=== PATIENT | female | born 1945 | race Caucasian/White ===

== ENCOUNTER 2017-11-20 16:05 | Observation (INO) | payer OTHER ==
[2017-11-20] MEDS ORDERED: NA CHLORIDE 0.9% 500 ML ONE (19:16)
--- NOTE | 2017-11-20 19:29 | RAD REPORT ---
EXAM DESCRIPTION: RAD - Chest Single View - 11/20/2017 7:01 pm CLINICAL HISTORY: left leg pain Chest pain. COMPARISON: CHEST SINGLE VIEW dated 12/26/2007; CHEST SINGLE VIEW dated 04/07/2006 FINDINGS: Portable technique limits examination quality. The lungs are grossly clear. The heart is normal in size. 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 IMPRESSION: No acute intrathoracic process suspected.
--- NOTE | 2017-11-20 19:31 | RAD REPORT ---
EXAM DESCRIPTION: US - Extrem Venous W Compress Adelfo - 11/20/2017 7:04 pm CLINICAL HISTORY: left leg pain, right calf pain, elevated d-dimer Bilateral leg edema and swelling. COMPARISON: No comparisons TECHNIQUE: Real-time sonographic interrogation of the left and right lower extremity deep venous sys tems was performed. FINDINGS: Normal compressibility, flow augmentation, phasic flow and spontaneous flow is identified in both the left and right lower extremity deep venous systems. The left greater saphenous vein shows thrombosis involving the proximal to distal and upper thigh segment. IMPRESSION: No sonographic evidence of left or right lower extremity deep venous thrombosis. Greater saphenous vein thrombosis on the left is present as detailed.
[2017-11-20 19:51] LABS: Absolute Lymphocytes (CBC) 1.6 K/uL (0.7-4.9); Absolute Monocytes 1.3 K/uL (0.1-1.3); Absolute Neutrophil 9.6 K/uL (1.8-8.0); Basophils % 0.6 % (0-1.3); Eosinophils % 0.9 % (0-4.4); Hematocrit 41.9 % (36.0-45.0); Lymphocytes % 12.7 % (15.3-44.8); MCH 30.5 pg (27.0-35.0); MCV 90.4 fL (80-100); Monocytes % 10.4 % (3.3-12.3); RBC Red Blood Cell Count 4.64 M/uL (3.86-4.86)
[2017-11-20 20:12] LABS: ALT/SGPT 21 U/L (12-78); AST/SGOT 18 U/L (15-37); Albumin 3.7 g/dL (3.4-5.0); Alkaline Phosphatase 116 U/L (45-117); BUN Blood Urea Nitrogen 28 mg/dL (7-18); Bicarbonate 31 mmol/L (21-32); Bilirubin Direct 0.2 mg/dL (0-0.2); Bilirubin Total 0.8 mg/dL (0.2-1.0); Glucose Level 103 mg/dL (74-106); Magnesium 2.6 mg/dL (1.8-2.4); NT PRO-BNP 163 pg/mL (<125); Potassium 4.2 mmol/L (3.5-5.1); Protein, Total 7.7 g/dL (6.4-8.2); Sodium Level 134 mmol/L (136-145); Troponin (Emerg Dept Use Only) < 0.02 ng/mL (0.0-0.045)
[2017-11-20] MEDS ORDERED: ENOXAPARIN 60 MG/0.6 ML SQ ONE (20:24)
--- NOTE | 2017-11-20 20:27 | EDPHYS ---
Physician Documentation [facility] Name: Linda Paniagua Age: 71 yrs Sex: Female : 1945 Arrival Date: 11/20/2017 Time: 16:08 Bed 20 Private MD: Emanuel Chapman ED Physician JaiherbertRicardo tran HPI: 11/20 18:00 This 71 yrs old Female presents to ER via Wheelchair with complaints of pm1 Abnormal Lab Results. 18:00 Onset: The symptoms/episode began/occurred today. Associated signs and symptoms: pm1 Pertinent negatives: chest pain, fever, shortness of breath. Modifying factors: The patient symptoms are alleviated by nothing, the patient symptoms are aggravated by nothing. The patient has not experienced similar symptoms in the past. The patient has been recently seen by a physician: the patient's primary care provider, Dr. Chapman earlier today, with similar presenting complaints, and apparently given a diagnosis of elevated d-dimer, lab tests were done, was given a prescription for antibiotics, and was sent to the [facility] Emergency Department for further evaluation. Patient with complaints of left thigh redness and pain for 3 days. Presented to PCP and had CBC and d-dimer drawn. Instructed to report to the ER for further evaluation of possible DVT/cellulitis She was given a prescription but has not filled it yet. No chest pain or shortness of breath present. Historical: - Allergies: 16:51 PENICILLINS; aj1 - Home Meds: 16:51 Metoprolol Tartrate Oral [Active]; Simvastatin Oral [Active]; losartan oral oral aj1 [Active]; - PMHx: 16:51 breast cancer; uterine cancer; Dementia; Hypertension; Hyperlipidemia; aj1 - PSHx: 16:51 mastectomy- left sided lymph node removal; Hysterectomy; aj1 - Immunization history:: Flu vaccine is not up to date. - Social history:: Smoking status: Patient/guardian denies using tobacco. - Ebola Screening: : Patient denies travel to an Ebola-affected area in the 21 days before illness onset. ROS: 18:00 Constitutional: Negative for fever, chills, and weight loss, Eyes: Negative for injury, pm1 pain, redness, and discharge, ENT: Negative for injury, pain, and discharge, Neck: Negative for injury, pain, and swelling, Cardiovascular: Negative for chest pain, palpitations, and edema, Respiratory: Negative for shortness of breath, cough, wheezing, and pleuritic chest pain, Abdomen/GI: Negative for abdominal pain, nausea, vomiting, diarrhea, and constipation, Back: Negative for injury and pain. 18:00 MS/extremity: Positive for pain, swelling, tenderness, of the medial aspect of left thigh. 18:00 Skin: Positive for swelling, of the medial aspect of left thigh. 18:00 Neuro: Negative for headache, weakness, numbness, tingling, and seizure. pm1 Exam: 18:00 Constitutional: This is a well developed, well nourished patient who is awake, alert, pm1 and in no acute distress. Head/Face: Normocephalic, atraumatic. Eyes: Pupils equal round and reactive to light, extra-ocular motions intact. Lids and lashes normal. Conjunctiva and sclera are non-icteric and not injected. Cornea within normal limits. Periorbital areas with no swelling, redness, or edema. ENT: Nares patent. No nasal discharge, no septal abnormalities noted. Tympanic membranes are normal and external auditory canals are clear. Oropharynx with no redness, swelling, or masses, exudates, or evidence of obstruction, uvula midline. Mucous membranes moist. Neck: Trachea midline, no thyromegaly or masses palpated, and no cervical lymphadenopathy. Supple, full range of motion without nuchal rigidity, or vertebral point tenderness. No Meningismus. Chest/axilla: Normal chest wall appearance and motion. Nontender with no deformity. No lesions are appreciated. Cardiovascular: Regular rate and rhythm with a normal S1 and S2. No gallops, murmurs, or rubs. Normal PMI, no JVD. No pulse deficits. Respiratory: Lungs have equal breath sounds bilaterally, clear to auscultation and percussion. No rales, rhonchi or wheezes noted. No increased work of breathing, no retractions or nasal flaring. Abdomen/GI: Soft, non-tender, with normal bowel sounds. No distension or tympany. No guarding or rebound. No evidence of tenderness throughout. Back: No spinal tenderness. No costovertebral tenderness. Full range of motion. 18:00 Musculoskeletal/extremity: DVT Exam: pain, of the medial aspect of left thigh, swelling, of the medial aspect of left thigh, tenderness, of the medial aspect of left thigh, erythema, of the medial aspect of left thigh, increased warmth, of the medial aspect of left thigh. 18:00 Skin: Appearance: normal except for affected area, redness and swelling present to left medial thigh. Vital Signs: 16:51 BP 117 / 85; Pulse 122; Resp 24; Temp 99.3(TE); Pulse Ox 97% on R/A; Weight 58.97 kg aj (R); Height 5 ft. 5 in. (165.10 cm) (R); Pain 8/10; 17:50 BP 118 / 74; Pulse 103; Resp 19; Pulse Ox 98% on R/A; Pain 4/10; rb1 21:02 BP 120 / 67; Pulse 71; Resp 18 S; Pulse Ox 98% on R/A; jd3 21:48 BP 125 / 73; Pulse 95; Resp 19 S; Pulse Ox 98% on R/A; jd3 16:51 Body Mass Index 21.63 (58.97 kg, 165.10 cm) [facility] MDM: 17:44 Patient medically screened. pm1 19:51 Data reviewed: vital signs. Data interpreted: Pulse oximetry: on room air is 95 %. pm1 Interpretation: normal. Counseling: I had a detailed discussion with the patient and/or guardian regarding: the historical points, exam findings, and any diagnostic results supporting the discharge/admit diagnosis, radiology results, the need for further work-up and treatment in the hospital. 20:28 Physician consultation: Emanuel Chapman MD was called at 20:28, was contacted at 20:28, pm1 regarding patient's condition, Recommends not to perform CT chest and anticoagulate the patient on 6 month therapy versus 3 months. IV contrast would potentially harm kidney function and we can just treat with assumptions of microemboli in chest and treat over 6 months. Gave a prescription for antibiotics to treat left lower leg with assumption of cellulitis prior to d-dimer result. Does not feel it would hurt to cover with abx. Communicated discussion with Ari to Rubén will observe prior to giving abx. Appearance of left thigh appears to be caused by DVT. 11/20 17:53 Order name: Basic Metabolic Panel; Complete Time: 20:16 pm1 11/20 17:53 Order name: CBC with Diff; Complete Time: 20:16 pm1 11/20 17:53 Order name: LFT's; Complete Time: 20:16 pm1 11/20 17:53 Order name: Magnesium; Complete Time: 20:16 pm1 11/20 17:53 Order name: NT PRO-BNP; Complete Time: 20:16 pm1 11/20 17:53 Order name: PT-INR; Complete Time: 21:43 pm1 11/20 17:53 Order name: Troponin (emerg Dept Use Only); Complete Time: 20:16 pm1 11/20 17:53 Order name: XRAY Chest (1 view); Complete Time: 19:40 pm1 11/20 17:53 Order name: Extrem Venous W Compression Adelfo US; Complete Time: 19:40 pm1 11/20 17:53 Order name: Blood Culture Adult (2) pm1 11/20 17:53 Order name: Procalcitonin; Complete Time: 21:43 pm1 11/20 17:53 Order name: Lactate; Complete Time: 21:43 pm1 11/20 17:53 Order name: EKG; Complete Time: 17:54 pm1 11/20 17:53 Order name: Cardiac monitoring; Complete Time: 18:56 pm1 11/20 17:53 Order name: EKG - Nurse/Tech; Complete Time: 18:59 pm1 11/20 17:53 Order name: IV Saline Lock; Complete Time: 18:56 pm1 11/20 17:53 Order name: Labs collected and sent; Complete Time: 18:56 pm1 11/20 17:53 Order name: O2 Per Protocol; Complete Time: 18:56 pm1 11/20 17:53 Order name: O2 Sat Monitoring; Complete Time: 18:56 pm1 Administered Medications: 19:15 Drug: NS 0.9% 500 ml Route: IV; Rate: bolus; Site: right antecubital; rb1 21:16 Follow up: Response: No adverse reaction; IV Status: Completed infusion; IV Intake: jd3 500ml 20:23 Drug: Lovenox 1 mg/kg Route: Sub-Q; Site: abdomen; jd3 21:16 Follow up: Response: No adverse reaction jd3 Disposition: 11/20/17 20:26 Hospitalization ordered by Monroe Pringle for Observation. Preliminary diagnosis is Acute embolism and thrombosis of other specified deep vein of left lower extremity - Saphenous vein. - Bed requested for Telemetry/MedSurg (observation). - Status is Observation. jd3 - Condition is Stable. - Problem is new. - Symptoms have improved. UTI on Admission? No Addendum: 12/03/2017 11:12 Co-signature as Attending Physician, Ricardo Treviño MD. m a2 Signatures: Dispatcher [employer] EDMS Marie Salgado RN RN aj1 Jessica Nix RN RN fc Shreya Bryson, RN RN [facility] Gerald Jurado, DRIVER'S LICENSE EXAMINER DRIVER'S LICENSE EXAMINER pm1 Marcelino De Souza RN RN jd3 Alzahri, MD HYACINTH Silva ma2 Corrections: (The following items were deleted from the chart) 11/20 21:04 20:26 Hospitalization Ordered by Monroe Pringle MD for Observation. Preliminary fc diagnosis is Acute embolism and thrombosis of other specified deep vein of left lower extremity - Saphenous vein. Bed requested for Telemetry/MedSurg (observation). Status is Observation. Condition is Stable. Problem is new. Symptoms have improved. UTI on Admission? No. pm1 22:08 21:04 11/20/2017 20:26 Hospitalization Ordered by Monroe Pringle MD for Observation. jd3 Preliminary diagnosis is Acute embolism and thrombosis of other specified deep vein of left lower extremity - Saphenous vein. Bed requested for Telemetry/MedSurg (observation). Status is Observation. Condition is Stable. Problem is new. Symptoms have improved. UTI on Admission? No. fc
--- NOTE | 2017-11-20 20:27 | ER ---
Nurse's Notes [facility] Name: Linda Paniagau Age: 71 yrs Sex: Female : 1945 Arrival Date: 11/20/2017 Time: 16:08 Bed 20 Private MD: Emanuel Chapman Diagnosis: Acute embolism and thrombosis of other specified deep vein of left lower extremity-Saphenous vein Presentation: 11/20 16:40 Presenting complaint: states: She was seen this morning at Dr. Mendez because aj1 she her left thigh has a reddened area that feels firm to the touch. She was sent to get labs and Dr. Chapman's office called back and told them that her D-Dimer was elevated and to come to the nearest emergency room. Patient reports SOB. Respirations even and unlabored. Breath sounds CTA. Patient reports dry cough. Transition of care: patient was not received from another setting of care. Onset of symptoms was November 20, 2017. Risk Assessment: Do you want to hurt yourself or someone else? Patient reports no desire to harm self or others. Initial Sepsis Screen: Does the patient meet any 2 criteria? No. Patient's initial sepsis screen is negative. Does the patient have a suspected source of infection? Yes: Productive cough/pneumonia. Care prior to arrival: None. 16:40 Method Of Arrival: Wheelchair aj1 16:40 Acuity: JOHANNA 2 aj1 Triage Assessment: 16:51 General: Appears in no apparent distress. uncomfortable, Behavior is calm, cooperative, aj1 appropriate for age. Pain: Pain currently is 8 out of 10 on a pain scale. Neuro: Level of Consciousness is awake, alert, obeys commands. Cardiovascular: Heart tones S1 S2 present Patient's skin is warm and dry. Respiratory: Reports shortness of breath on exertion Airway is patent Respiratory effort is even, unlabored, Respiratory pattern is regular, symmetrical, Breath sounds are clear bilaterally. Historical: - Allergies: 16:51 PENICILLINS; aj1 - Home Meds: 16:51 Metoprolol Tartrate Oral [Active]; Simvastatin Oral [Active]; losartan oral oral aj1 [Active]; - PMHx: 16:51 breast cancer; uterine cancer; Dementia; Hypertension; Hyperlipidemia; aj1 - PSHx: 16:51 mastectomy- left sided lymph node removal; Hysterectomy; aj1 - Immunization history:: Flu vaccine is not up to date. - Social history:: Smoking status: Patient/guardian denies using tobacco. - Ebola Screening: : Patient denies travel to an Ebola-affected area in the 21 days before illness onset. Screenin:50 Abuse screen: Denies threats or abuse. Nutritional screening: No deficits noted. rb1 Tuberculosis screening: No symptoms or risk factors identified. Fall Risk None identified. Assessment: 17:50 General: Appears in no apparent distress. comfortable, Behavior is calm, cooperative. rb1 Pain: Complains of pain in medial aspect of left thigh Pain currently is 4 out of 10 on a pain scale. Neuro: Level of Consciousness is awake, alert, obeys commands, Oriented to person, place, time, situation. Cardiovascular: Capillary refill < 3 seconds is brisk in bilateral toes. Respiratory: Reports shortness of breath cough that is dry, Airway is patent Respiratory effort is even, unlabored, Respiratory pattern is regular, symmetrical. GI: No signs and/or symptoms were reported involving the gastrointestinal system. : No signs and/or symptoms were reported regarding the genitourinary system. Derm: Skin is pink, warm \T\ dry. Musculoskeletal: Range of motion: intact in all extremities. 18:29 Reassessment: Ultrasound at bedside. Unable to obtain labs at this time. Awaiting for ss testing to be done. 18:45 Reassessment: Patient appears in no apparent distress at this time. No changes from rb1 previously documented assessment. 19:40 Reassessment: Patient appears in no apparent distress at this time. No changes from jd3 previously documented assessment. Patient and/or family updated on plan of care and expected duration. Pain level reassessed. Patient is alert, oriented x 3, equal unlabored respirations, skin warm/dry/pink. 20:49 Reassessment: Patient appears in no apparent distress at this time. No changes from jd3 previously documented assessment. Patient and/or family updated on plan of care and expected duration. Pain level reassessed. Patient is alert, oriented x 3, equal unlabored respirations, skin warm/dry/pink. waiting for room assignment. 21:47 Reassessment: Patient appears in no apparent distress at this time. No changes from jd3 previously documented assessment. Patient and/or family updated on plan of care and expected duration. Pain level reassessed. Patient is alert, oriented x 3, equal unlabored respirations, skin warm/dry/pink. report given to Rehana RN by Hanny PEPPER. Vital Signs: 16:51 BP 117 / 85; Pulse 122; Resp 24; Temp 99.3(TE); Pulse Ox 97% on R/A; Weight 58.97 kg aj1 (R); Height 5 ft. 5 in. (165.10 cm) (R); Pain 8/10; 17:50 BP 118 / 74; Pulse 103; Resp 19; Pulse Ox 98% on R/A; Pain 4/10; rb1 21:02 BP 120 / 67; Pulse 71; Resp 18 S; Pulse Ox 98% on R/A; jd3 21:48 BP 125 / 73; Pulse 95; Resp 19 S; Pulse Ox 98% on R/A; jd3 16:51 Body Mass Index 21.63 (58.97 kg, 165.10 cm) aj1 ED Course: 16:08 Patient arrived in ED. rg4 16:08 Emanuel Chapman MD is Private Physician. rg4 16:49 Triage completed. aj1 16:51 Arm band placed on Patient placed in waiting room, Patient notified of wait time aj1 Patient Notified EVGENY Conway, charge nurse of patient with elevated D-Dimer, tachycardia. 17:44 Gerald Jurado NP is PHCP. pm1 17:44 Ricardo Treviño MD is Attending Physician. pm1 17:50 Patient has correct armband on for positive identification. Placed in gown. Bed in low rb1 position. Call light in reach. Side rails up X 1. Pulse ox on. NIBP on. Warm blanket given. 18:03 Shreya Bryson, EVGENY is Primary Nurse. rb1 18:05 EKG done, by compliance technician. reviewed by Gerald Jurado NP. sm3 18:45 Inserted saline lock: 22 gauge in right antecubital area, using aseptic technique. rb1 Blood collected. 18:57 X-ray completed. Portable x-ray completed in exam room. Patient tolerated procedure az well. 19:00 Report given to EVGENY Simental. rb1 19:01 XRAY Chest (1 view) In Process Unspecified. EDMS 19:03 Extrem Venous W Compression Adelfo US In Process Unspecified. EDMS 20:20 Monroe Pringle MD is Hospitalizing Provider. pm1 22:08 No provider procedures requiring assistance completed. Patient admitted, IV remains in jd3 place. Administered Medications: 19:15 Drug: NS 0.9% 500 ml Route: IV; Rate: bolus; Site: right antecubital; rb1 21:16 Follow up: Response: No adverse reaction; IV Status: Completed infusion; IV Intake: jd3 500ml 20:23 Drug: Lovenox 1 mg/kg Route: Sub-Q; Site: abdomen; jd3 21:16 Follow up: Response: No adverse reaction jd3 Intake: 21:16 IV: 500ml; Total: 500ml. jd3 Outcome: 20:26 Decision to Hospitalize by Provider. pm1 22:08 Patient left the ED. jd3 22:21 Admitted to Tele accompanied by tech, via wheelchair, room 229, with chart, Report jd3 called to Rehana PEPPER 22:21 Condition: stable 22:21 Instructed on the need for admit, Demonstrated understanding of instructions. Signatures: Dispatcher [employer] EDMS Marie Salgado RN RN aj1 Zoraida White RN RN ss Shreya Bryson RN RN rb1 Gerald Jurado, PURCHASING ADMINISTRATOR PURCHASING ADMINISTRATOR pm1 Teresa Gómez4 Marcelino De Souza RN RN jd3 Griselda Rodas 3 Alva Emerson Corrections: (The following items were deleted from the chart) 20:49 18:50 BP 116 / 68; Pulse 93bpm; Resp 18bpm; Pulse Ox 95% RA; rb1 jd3 20:49 20:47 BP 117 / 82; Pulse 90bpm; Resp 18bpm; Spontaneous; Pulse Ox 98% RA; jd3 jd3
[2017-11-20 20:41] LABS: Protime INR 1.16
[2017-11-20] MEDS ORDERED: ONDANSETRON 4 MG/2 ML VIAL IV PRN (21:45)
--- NOTE | 2017-11-20 22:27 | P.HP ---
Certification for Inpatient Patient admitted to: Observation With expected LOS: <2 Midnights Practitioner: I am a practitioner with admitting privileges, knowledge of patient current condition, hospital course, and medical plan of care. Services: Services provided to patient in accordance with Admission requirements found in Title 42 Section 412.3 of the Code of Federal Regulations Patient History Date of Service: 11/20/17 Reason for admission: DVT History of Present Illness: Ms Paniagua is a 71-year-old woman with history of hypertension, dementia, who is morning she woke up with painful area of her left tight. She also has erythema and induration to palpation. He has had subjective fever as well. Today, she went to see her PCP, D-dimer was significantly elevated, and she was referred to ER for further evaluation and rule out DVT. In ER workup was positive for left saphenous vein thrombosis. She denied any recent trip. According to family members the patient is very active. She has never had these symptoms in the past. Allergies No Known Allergies Allergy (Verified 01/18/16 10:06) Home medications list reviewed: Yes Home Medications: Aspirin [Aspirin EC 81 MG] 81 mg PO DAILY 01/18/16 Losartan/Hydrochlorothiazide [Losartan-Hctz 50-12.5 mg Tab] 1 each PO DAILY WITH BREAKFAST 01/18/16 Metoprolol Succinate [Toprol Xl*] 50 mg PO DAILY WITH BREAKFAST 01/18/16 Risedronate Sodium [Actonel] 150 mg PO ONCE 01/18/16 Simvastatin [Zocor*] 20 mg PO BEDTIME 01/18/16 - Past Medical/Surgical History -: Hypertension -: History of breast cancer -: History of uterine cancer -: Dementia -: Mastectomy -: Hysterectomy - Family History Family History: Reviewed- Non-Contributory - Social History Smoking Status: Never smoker Alcohol use: No CD- Drugs: No Place of Residence: Home Review of Systems 10-point ROS is otherwise unremarkable Physical Examination - Physical Exam General: Alert, In no apparent distress HEENT: Atraumatic, PERRLA, Mucous membr. moist/pink, EOMI, Sclerae nonicteric Neck: Supple, 2+ carotid pulse no bruit, No LAD, Without JVD or thyroid abnormality Respiratory: Clear to auscultation bilaterally, Normal air movement Cardiovascular: Regular rate/rhythm, Normal S1 S2 Gastrointestinal: Normal bowel sounds, No tenderness Musculoskeletal: Erythema, Tenderness, Warmth Integumentary: No rashes Neurological: Normal speech, Normal strength at 5/5 x4 extr, Normal tone, Normal affect Lymphatics: No axilla or inguinal lymphadenopathy - Studies Laboratory Data (last 24 hrs) 11/20/17 20:12: PT 13.7 H, INR 1.16 11/20/17 18:45: WBC 12.7 H, Hgb 14.1, Hct 41.9, Plt Count 274 11/20/17 18:45: Sodium 134 L, Potassium 4.2, BUN 28 H, Creatinine 1.60 H, Glucose 103, Magnesium 2.6 H, Total Bilirubin 0.8, AST 18, ALT 21, Alkaline Phosphatase 116 Assessment and Plan - Problems (Diagnosis) (1) DVT (deep venous thrombosis) Current Visit: Yes Status: Acute Qualifiers: DVT location: lower extremity Affected thrombotic vein of extremity: other lower extremity vein Chronicity: acute Laterality: left Qualified Code(s) : I82.492 - Acute embolism and thrombosis of other specified deep vein of left lower extremity (2) Hypertension Current Visit: Yes Status: Acute Qualifiers: Hypertension type: essential hypertension Qualified Code(s): I10 - Essential (primary) hypertension - Plan The patient will be admitted to the hospital due to acute DVT episode. Will start anticoagulation, she may be discharged home tomorrow if remain stable. - Advance Directives Does patient have a Living Will: No Does patient have a Durable POA for Healthcare: No - Code Status/Comfort Care Code Status Assessed: Yes Code Status: Full Code
[2017-11-21 06:08] LABS: Absolute Lymphocytes (CBC) 2.4 K/uL (0.7-4.9); Absolute Monocytes 1.4 K/uL (0.1-1.3); Basophils % 0.4 % (0-1.3); Eosinophils % 1.4 % (0-4.4); Hematocrit 40.2 % (36.0-45.0); Lymphocytes % 20.1 % (15.3-44.8); MCH 31.4 pg (27.0-35.0); MCV 90.2 fL (80-100); MPV 8.6 fL (7.6-11.3); Monocytes % 11.9 % (3.3-12.3); RBC Red Blood Cell Count 4.46 M/uL (3.86-4.86)
[2017-11-21 06:25] LABS: Potassium 4.1 mmol/L (3.5-5.1)
--- NOTE | 2017-11-21 06:51 | EKG ---
Test Date: 2017-11-20 Test Time: 17:59:36 Supervisor [employer]: ZENON MEASUREMENT RESULTS: Intervals: Rate: 92 DC: 136 QRSD: 76 QT: 366 QTc: 452 [place]: P: 44 DC: 136 QRS: -14 T: 37 INTERPRETIVE STATEMENTS: Normal sinus rhythm Normal ECG Compared to ECG 06/20/2016 13:23:12 Ventricular premature complex(es) no longer present Myocardial infarct finding no longer present Electronically Signed On 11-21-17 06:50:21 CDT by Manuel Bustamante
[2017-11-21] MEDS ORDERED: ENOXAPARIN 60 MG/0.6 ML SQ SCH (09:00)
--- NOTE | 2017-11-22 00:57 | DS ---
Date of Discharge: 11/21/2017 Discharge Diagnoses: 1.Superficial thrombophlebitis in the saphenous vein of the left lower extremity. 2.Essential hypertension. 3.History of breast cancer, in remission. Follows with Oncology at [facility]. 4.Alzheimer dementia, early onset, without behavioral disturbance. 5.History of uterine cancer, treated. Hospital Course: The patient is a 71-year-old female with history of hypertension, dementia, multipl e cancers in the late that had been treated and currently in remission. Follows actively with oncologist at [facility], comes in with redness of the left thigh along with induration to palpation and tenderness and warmth to touch. The patient had a doppler done to rule out DVT, showed a saphen ous vein thrombosis. The patient was started on anticoagulation with Lovenox. This is not a deep ve in thrombosis. This is in the greater saphenous vein on the left side, which is likely representing a thrombophlebitis of a superficial vein. The patient did better with anticoagulation. Her pain imp roved, however not completely resolved. Her redness also improved. Family is at the bedside. I exp lained to them that the patient does not necessarily have to be on anticoagulation; however, due to h er symptoms, she can be treated with Xarelto for 6 weeks and she will need to follow up with her onco logist at [facility] for a hypercoagulable workup. The patient denies smoking. No estrogen use. N o trauma to the area. No long flights or long car drives. Therefore, seems to be an unprovoked even t. She denies any family history of DVT. The patient is doing stable. Her vital signs were unremar kable. Her sodium level improved. Kidney function normalized. She was not septic. Her procalciton in was 0.08. White blood cell count was trending down. The patient was then cleared for discharge a nd will need to follow up with her oncologist at [facility]. Symptomatic treatment of the thromboph lebitis with elevation, heat, and compression. Medications: As per medication reconciliation list. Will take Xarelto for 6 weeks. Hold aspirin wh ile on Xarelto. Return to ER for worsening condition. Followup: Follow up with primary care physician in 2-3 days. Diet: Heart healthy. Activity: As tolerated. Physical Examination: General: Awake, alert, oriented, no acute distress. CV: S1, S2. No murmurs. Respiratory: Moving air well bilaterally. Abdomen: Abdomen is soft, nontender, nondistended. Positive bowel sounds. Extremities: Left thigh has some erythema and induration, with some mild tenderness to palpation, improved per the patient. Neurologic: Nonfocal. SA/MODL Voice ID: [id number] Report ID: [id number]
== END 2017-11-21 12:32 | disposition home or self-care (01) ==
LOC: ER 16:05 → ERHOLD 20:37 → 2ND 21:18
PROVIDERS: ADMIT Internal Medicine; ATTEND Internal Medicine
DX: I80.02 Phlebitis and thrombophlebitis of superficial vessels of left lower extremity (principal); I10 Essential (primary) hypertension; G30.9 Alzheimer's disease, unspecified; F02.80 Dementia in other diseases classified elsewhere, unspecified severity, without behavioral disturbance, psychotic disturbance, mood disturbance, and anxiety; Z79.82 Long term (current) use of aspirin; Z85.3 Personal history of malignant neoplasm of breast; Z85.42 Personal history of malignant neoplasm of other parts of uterus
CPT/HCPCS: 36415; 71045; 80048 ×2; 80076; 83605; 83735; 83880; 84145; 84484; 85025 ×2; 85610; 87040 ×2; 93005; 93970; 96360; 96361; 96372; 99285; G0378 ×2; J1650 ×2

== ENCOUNTER 2018-03-30 07:37 | Emergency (ER) | payer OTHER ==
[2018-03-30] MEDS ORDERED: NA CHLORIDE 0.9% 500 ML ONE ×2 (08:14→10:03)
[2018-03-30 08:24] LABS: Absolute Monocytes 0.8 K/uL (0.1-1.3); Absolute Neutrophil 8.8 K/uL (1.8-8.0); Basophils % 0.4 % (0-1.3); Eosinophils % 1.2 % (0-4.4); Hematocrit 37.6 % (36.0-45.0); Lymphocytes % 9.4 % (15.3-44.8); MPV 11.1 fL (7.6-11.3); Monocytes % 7.5 % (3.3-12.3); RBC Red Blood Cell Count 4.21 M/uL (3.86-4.86)
[2018-03-30 08:42] LABS: Bilirubin Direct 5.8 mg/dL (0-0.2); Bilirubin Total 6.8 mg/dL (0.2-1.0); Potassium 3.4 mmol/L (3.5-5.1); Protein, Total 6.2 g/dL (6.4-8.2)
[2018-03-30 10:16] LABS: Platelet Estimate DECR; Urine White Blood Cell Casts OK
[2018-03-30 10:17] LABS: Blood Morphology Comment NOT SEEN (NOT SEEN)
[2018-03-30 10:18] LABS: Platelets, Giant PRESENT
--- NOTE | 2018-03-30 10:18 | RAD REPORT ---
EXAM DESCRIPTION: CT - Head Brain W/Wo Con - 03/30/2018 10:08 am CLINICAL HISTORY: Breast cancer and confusion COMPARISON: None. TECHNIQUE: Computed axial tomography of the head was obtained. Unenhanced and enhanced images obtain ed. 50 cc Isovue-[address] scans are performed using dose optimization technique as appropriate and may include automated exposure control or mA/KV adjustment according to patient size. FINDINGS: An intracranial bleed is not seen . The ventricles are normal in caliber. No extra-axial fluid collection is noted. Cerebral atrophy is noted. No abnormal enhancement seen Fluid within the sinuses/ mastoids is not seen. IMPRESSION: No acute intracranial abnormality is seen. If patient's symptoms persist MRI of the bra in would be recommended.
--- NOTE | 2018-03-30 10:26 | RAD REPORT ---
EXAM DESCRIPTION: CT - Abdomen Pelvis W Contrast - 03/30/2018 10:08 am CLINICAL HISTORY: Abdominal pain. Jaundice COMPARISON: None. TECHNIQUE: Computed axial tomography of the abdomen and pelvis was obtained. 100 cc Isovue-300 is ad ministered intravenously. Oral contrast was given. All CT scans are performed using dose optimization technique as appropriate and may include automated exposure control or mA/KV adjustment according to patient size. FINDINGS: Multiple hypodense hepatic lesions are present measuring up to 6 centimeters. The liver is diffusely involves. Mild dilatation of the intrahepatic biliary tree is present. Common bile duct is normal isabel iber. The gallbladder appears contracted. Thrombus within the portal vein is not seen. The spleen, adrenals and kidneys demonstrate no significant abnormality. 3.6 centimeter mass is present within the pancreatic tail. There is no evidence of diverticulitis. A hysterectomy has been performed A small ventral hernia Spondylosis involves lumbar spine resulting in spinal stenosis IMPRESSION: 3.6 centimeter pancreatic mass likely representing adenocarcinoma Multiple hepatic metastases. Mild intrahepatic dilatation
--- NOTE | 2018-03-30 10:44 | EDPHYS ---
Physician Documentation [facility] Name: Linda Paniagua Age: 72 yrs Sex: Female : 1945 Arrival Date: 03/30/2018 Time: 07:40 Bed 13 Private MD: ED Physician Hakan De Leon HPI: 03/30 07:48 This 72 yrs old Female presents to ER via Unassigned with complaints of rn diarrhea, AMS. 07:48 The patient presents to the emergency department with diarrhea. Onset: The rn symptoms/episode began/occurred at an unknown time. Possible causes: unknown. Associated signs and symptoms: Pertinent positives: diarrhea, Pertinent negatives: fever, GI bleeding. Severity of symptoms: At their worst the symptoms were mild in the emergency department the symptoms are unchanged. It is unknown whether or not the patient has had similar symptoms in the past. Per EMS, not much information given other than AMS, confused, an diarrhea, famiy thought was from increasing her donepezil, no vomiting, no known trauma. . Historical: - Allergies: 07:40 PENICILLINS; rb1 - Home Meds: 07:40 losartan-hydrochlorothiazide 50-12.5 mg oral tab 1 tab once daily [Active]; donepezil rb1 HCL 5 mg 2 tabs daily [Active]; simvastatin 20 mg oral tab 1 tab once daily [Active]; Xarelto 20 mg oral tab 1 tab once daily [Active]; - PMHx: 07:40 breast cancer; Dementia; Hyperlipidemia; Hypertension; uterine cancer; rb1 - PSHx: 07:40 mastectomy- left sided lymph node removal; Hysterectomy; neck; rb1 - Immunization history:: Adult Immunizations up to date. - Family history:: not pertinent. - Ebola Screening: : Patient negative for fever greater than or equal to 101.5 degrees Fahrenheit, and additional compatible Ebola Virus Disease symptoms. - Social history:: Smoking status: Patient/guardian denies using tobacco. - Hospitalizations: : No recent hospitalization is reported. ROS: 07:48 Constitutional: Negative for fever, chills, and weight loss, Eyes: Negative for injury, rn pain, redness, and discharge, Neck: Negative for injury, pain, and swelling, Cardiovascular: Negative for chest pain, palpitations, and edema, Respiratory: Negative for shortness of breath, cough, wheezing, and pleuritic chest pain, Abdomen/GI: + diarrhea Back: Negative for injury and pain, MS/Extremity: Negative for injury and deformity, Skin: Negative for injury, rash, and discoloration, Neuro: Negative for headache, numbness, tingling, and seizure. Exam: 07:48 Constitutional: This is a well developed, well nourished patient who is awake, alert, rn and in no acute distress. Head/Face: Normocephalic, atraumatic. Eyes: Pupils equal round and reactive to light, extra-ocular motions intact. Lids and lashes normal. Conjunctiva and sclera are non-icteric and not injected. Cornea within normal limits. Periorbital areas with no swelling, redness, or edema. ENT: MMM Cardiovascular: Regular rate and rhythm, No pulse deficits. Respiratory: Lungs have equal breath sounds bilaterally, clear to auscultation. No increased work of breathing, no retractions or nasal flaring. Abdomen/GI: soft, non-tender Skin: Face/neck appear jaundiced with scleral icterus. MS/ Extremity: Pulses equal, no cyanosis. Neurovascular intact. Full, normal range of motion. Equal circumference. Neuro: Awake and alert, GCS 15, oriented to person, place, not time. Cranial nerves II-XII grossly intact. Motor strength 5/5 in all extremities. Sensory grossly intact. Vital Signs: 07:40 BP 129 / 77; Pulse 77; Resp 19; Temp 97.3(TE); Pulse Ox 95% on R/A; Weight 46.27 kg rb1 (R); Height 5 ft. 3 in. (160.02 cm) (R); Pain 3/10; 08:40 BP 125 / 80; Pulse 74; Resp 18; Pulse Ox 100% on R/A; rb1 09:15 BP 120 / 83; Pulse 78; Resp 17; Pulse Ox 100% ; rb1 10:15 BP 131 / 80; Pulse 86; Resp 17; Pulse Ox 100% on R/A; rb1 11:15 BP 118 / 67; Pulse 87; Resp 17; Pulse Ox 100% on R/A; rb1 12:15 BP 122 / 72; Pulse 72; Resp 16; Pulse Ox 99% on R/A; rb1 07:40 Body Mass Index 18.07 (46.27 kg, 160.02 cm) rb1 MDM: 07:40 Patient medically screened. rn 10:42 Differential diagnosis: Nonspecific abd pain, gastritis, pancreatitis, viral rn gastroenteritis, gastroenteritis, liver cancer, pancreatic cancer. Data reviewed: vital signs, nurses notes, lab test result(s), radiologic studies, CT scan, and as a result, I will admit patient. Counseling: I had a detailed discussion with the patient and/or guardian regarding: the historical points, exam findings, and any diagnostic results supporting the discharge/admit diagnosis, lab results, radiology results, the need for further work-up and treatment in the hospital, the need to transfer to another facility, [facility] does not immediately have the required specialist. 03/30 07:43 Order name: Basic Metabolic Panel; Complete Time: 09:02 rn 03/30 07:43 Order name: CBC with Diff; Complete Time: 10:36 rn 03/30 07:43 Order name: Hepatic Function; Complete Time: 09:02 rn 03/30 07:43 Order name: Lipase; Complete Time: 09:02 rn 03/30 07:48 Order name: Urine Microscopic Only; Complete Time: 12:14 rn 03/30 08:33 Order name: CBC Smear Scan; Complete Time: 10:36 EDMS 03/30 07:43 Order name: CT Abd/Pelvis - W/Contrast; Complete Time: 10:36 rn 03/30 09:11 Order name: US Abdomen Limited; Complete Time: 11:49 rn 03/30 09:52 Order name: Head Brain W/Wo Con; Complete Time: 10:36 EDMS 03/30 12:03 Order name: Urine Dipstick--Ancillary (enter results); Complete Time: 12:14 03/30 07:43 Order name: IV Saline Lock; Complete Time: 08:03 rn 03/30 07:43 Order name: Labs collected and sent; Complete Time: 08:03 rn 03/30 07:43 Order name: EKG; Complete Time: 07:44 rn 03/30 07:43 Order name: EKG - Nurse/Tech; Complete Time: 08:45 rn 03/30 07:48 Order name: Urine Dipstick-Ancillary (obtain specimen); Complete Time: 12:03 rn Administered Medications: 08:05 Drug: NS 0.9% 500 ml Route: IV; Rate: bolus; Site: right antecubital; rb1 10:20 Drug: NS 0.9% 500 ml Route: IV; Rate: bolus; Site: right antecubital; rb1 11:30 Drug: Valium 2 mg Route: PO; rb1 Disposition: 03/30/18 10:43 Transfer ordered to [facility]. Diagnosis are Unspecified jaundice, Pancreatic Mass. - Reason for transfer: Higher level of care. - Accepting physician is . - Condition is Stable. - Problem is new. - Symptoms are unchanged. Signatures: Dispatcher [employer] EDWI Hakan De Leon MD MD rn Barber, Rebecca, RN RN rb1 Corrections: (The following items were deleted from the chart) 09:52 09:12 Head Brain Wo Cont+CT.RAD.BRZ ordered. [facility] 12:36 10:43 03/30/2018 10:43 Transfer ordered to [facility]. Diagnosis is rb1 Unspecified jaundice; Pancreatic Mass. Reason for transfer: Higher level of care. Accepting physician is . Condition is Stable. Problem is new. Symptoms are unchanged. rn
--- NOTE | 2018-03-30 10:44 | ER ---
Nurse's Notes [facility] Name: Linda Paniagua Age: 72 yrs Sex: Female : 1945 Arrival Date: 03/30/2018 Time: 07:40 Bed 13 Private MD: Diagnosis: Unspecified jaundice;Pancreatic Mass Presentation: 03/30 07:40 Presenting complaint: EMS states: 72 yr. old with a history of dementia. Her dementia rb1 medication was increased recently and she has had diarrhea x 1 day. History of breast and uterine cancer, dementia, neck surgery, left mastectomy, and hysterectomy. 18 G R AC, EMS administered 250 ml of NS. Allergy to Penicillin. Transition of care: patient was not received from another setting of care. Onset of symptoms was March 29, 2018. Risk Assessment: Do you want to hurt yourself or someone else? Patient reports no desire to harm self or others. Initial Sepsis Screen: Does the patient meet any 2 criteria? No. Patient's initial sepsis screen is negative. Does the patient have a suspected source of infection? No. Patient's initial sepsis screen is negative. Care prior to arrival: Medication(s) given: Normal saline infusion, 250 ml. 07:40 Method Of Arrival: EMS: [facility] rb1 07:40 Acuity: JOHANNA 3 rb1 Triage Assessment: 07:40 General: Appears in no apparent distress. comfortable, Behavior is calm, cooperative, rb1 Denies fever. Pain: Complains of pain in neck Pain currently is 3 out of 10 on a pain scale. Pain began chronic. Neuro: Level of Consciousness is awake, obeys commands, confused, Dementia. Oriented to person. Cardiovascular: Capillary refill < 3 seconds is brisk in bilateral fingers. Respiratory: Airway is patent Respiratory effort is even, unlabored, Respiratory pattern is regular, symmetrical. GI: Parent/caregiver reports the patient having diarrhea, since x 1 day. : No signs and/or symptoms were reported regarding the genitourinary system. Derm: Skin is dry, Skin is jaundiced, Skin temperature is warm. Historical: - Allergies: 07:40 PENICILLINS; rb1 - Home Meds: 07:40 losartan-hydrochlorothiazide 50-12.5 mg oral tab 1 tab once daily [Active]; donepezil rb1 HCL 5 mg 2 tabs daily [Active]; simvastatin 20 mg oral tab 1 tab once daily [Active]; Xarelto 20 mg oral tab 1 tab once daily [Active]; - PMHx: 07:40 breast cancer; Dementia; Hyperlipidemia; Hypertension; uterine cancer; rb1 - PSHx: 07:40 mastectomy- left sided lymph node removal; Hysterectomy; neck; rb1 - Immunization history:: Adult Immunizations up to date. - Family history:: not pertinent. - Ebola Screening: : Patient negative for fever greater than or equal to 101.5 degrees Fahrenheit, and additional compatible Ebola Virus Disease symptoms. - Social history:: Smoking status: Patient/guardian denies using tobacco. - Hospitalizations: : No recent hospitalization is reported. Screenin:40 Abuse screen: Denies threats or abuse. Nutritional screening: No deficits noted. rb1 Tuberculosis screening: No symptoms or risk factors identified. Fall Risk No fall in past 12 months (0 pts). Secondary diagnosis (15 points) dementia, IV access (20 points). Ambulatory Aid- None/Bed Rest/Nurse Assist (0 pts). Gait- Normal/Bed Rest/Wheelchair (0 pts) Mental Status- Overestimates/Forgets Limitations (15 pts.). Total Kumar Fall Scale indicates High Risk Score (45 or more points). Fall prevention measures have been instituted. Side Rails Up X 2 Placed Close to Nursing Station 1:1 Attendant Assigned Frequent Obs/Assessments Occuring Family Present and informed to notify staff if the need to leave the bedside As available patient and family educated on Fall Prevention Program and Strategies. Assessment: 07:40 General: See triage assessment. rb1 08:40 Reassessment: Patient appears in no apparent distress at this time. No changes from rb1 previously documented assessment. Daughter at bedside. 09:24 Reassessment: Patient appears in no apparent distress at this time. Patient and/or rb1 family updated on plan of care and expected duration. Pain level reassessed. Patient is alert, oriented x 3, equal unlabored respirations, skin warm/dry/pink. Family at bedside. 10:23 Reassessment: Patient appears in no apparent distress at this time. Patient and/or rb1 family updated on plan of care and expected duration. Pain level reassessed. Patient is alert, oriented x 3, equal unlabored respirations, skin warm/dry/pink. Attempted to collect urine but the pt. and family refused at this time. Provider notified. 11:02 Reassessment: Family reports that the pt. is getting a little anxious, trying to crawl rb1 out of bed and wants to leave. Provider notified. 11:19 Reassessment: Called report to EVGENY Lezama at [facility]. Information from rb1 the SBAR was given. All questions asked and answered. 12:00 Reassessment: Patient appears in no apparent distress at this time. Patient and/or rb1 family updated on plan of care and expected duration. Pain level reassessed. Patient is alert, oriented x 3, equal unlabored respirations, skin warm/dry/pink. Patient denies pain at this time. 12:28 Reassessment: Gave report to [facility]. Information from the SBAR was given. All rb1 questions asked and answered. Vital Signs: 07:40 BP 129 / 77; Pulse 77; Resp 19; Temp 97.3(TE); Pulse Ox 95% on R/A; Weight 46.27 kg rb1 (R); Height 5 ft. 3 in. (160.02 cm) (R); Pain 3/10; 08:40 BP 125 / 80; Pulse 74; Resp 18; Pulse Ox 100% on R/A; rb1 09:15 BP 120 / 83; Pulse 78; Resp 17; Pulse Ox 100% ; rb1 10:15 BP 131 / 80; Pulse 86; Resp 17; Pulse Ox 100% on R/A; rb1 11:15 BP 118 / 67; Pulse 87; Resp 17; Pulse Ox 100% on R/A; rb1 12:15 BP 122 / 72; Pulse 72; Resp 16; Pulse Ox 99% on R/A; rb1 07:40 Body Mass Index 18.07 (46.27 kg, 160.02 cm) [facility] ED Course: 07:40 Patient arrived in ED. rn 07:40 Hakan De Leon MD is Attending Physician. rn 07:40 Arm band placed on right wrist. rb1 07:40 Patient has correct armband on for positive identification. Bed in low position. Call rb1 light in reach. Side rails up X 1. Pulse ox on. NIBP on. 07:40 Maintain EMS IV. Dressing intact. Good blood return noted. Site clean \T\ dry. Gauge \T\ rb 1 site: 18 G R AC. 07:48 Shreya Bryson, RN is Primary Nurse. rb1 07:54 Triage completed. rb1 07:59 Initial lab(s) drawn, by me, sent to lab. dh3 08:45 EKG done, by ED staff, reviewed by Hakan De Leon MD. dh3 09:44 Radiology exam delayed due to in CT. sg3 10:08 CT Abd/Pelvis - W/Contrast In Process Unspecified. EDMS 10:08 Head Brain W/Wo Con In Process Unspecified. EDMS 10:34 initiated a transfer with Christine at the [facility] transfer center. eb 10:49 connected the GI mason helper for [facility] with Dr. De Leon for patient transfer eb consultation. 10:57 connected the hospitalist mason helper from [facility] transfer with Dr. De Leon for eb patient transfer consultation. 11:00 Ultrasound completed. Patient tolerated well. sg3 11:06 US Abdomen Limited In Process Unspecified. EDMS 11:09 administrative approval given by Cheyenne Yanez / Dr. Fung, has accepted the eb patient in transfer, pt going to [id number]/ report to be called to [phone]. 12:02 Urine collected: clean catch specimen, richard colored. 3 12:36 No provider procedures requiring assistance completed. Patient transferred, IV remains rb1 in place. Administered Medications: 08:05 Drug: NS 0.9% 500 ml Route: IV; Rate: bolus; Site: right antecubital; rb1 10:20 Drug: NS 0.9% 500 ml Route: IV; Rate: bolus; Site: right antecubital; rb1 11:30 Drug: Valium 2 mg Route: PO; rb1 Output: 12:00 Urine: 240ml (Voided); Total: 240ml. rb1 Outcome: 10:43 ER care complete, transfer ordered by . rn 12:36 Patient left the ED. rb1 12:36 Transferred by ground EMS to [facility], Transfer form completed. rb1 12:36 Condition: stable 12:36 Instructed on the need for transfer. Signatures: Dispatcher [employer] EDMS Hakan De Leon MD MD rn Barber, Rebecca, RN RN [facility] Fara Finn 3 Jennifer Putnam 3 Mallika Thomas
[2018-03-30] MEDS ORDERED: DIAZEPAM 2 MG TABLET ONE (11:37)
--- NOTE | 2018-03-30 11:44 | RAD REPORT ---
EXAM DESCRIPTION: US - Abdomen Exam Limited - 03/30/2018 11:05 am CLINICAL HISTORY: Abdominal pain. COMPARISON: None. FINDINGS: The gallbladder wall is not thickened. A gallstone is not seen. Gallbladder is contracted Mild dilatation the intrahepatic biliary tree. The common bile duct is normal caliber IMPRESSION: Mild dilatation of the intrahepatic biliary tree. Contracted gallbladder without visualization of a stone
[2018-03-30 12:12] LABS: Urine Blood TRACE (NEG); Urine Glucose NEGATIVE (NEG); Urine Protein NEGATIVE (NEG); Urine Specific Gravity 1.005 (1.005-1.030)
[2018-03-30 12:12] LABS: Urine Bacteria <20 /HPF (<20); Urine Culture Reflex Order NOT NEEDED; Urine Mucus 1+ /HPF (NONE SEEN)
--- NOTE | 2018-03-31 10:55 | EKG ---
Test Date: 2018-03-30 Test Time: 08:42:58 Mica Paster: YUDELKA MEASUREMENT RESULTS: Intervals: Rate: 76 AR: 136 QRSD: 78 QT: 428 QTc: 481 [place]: P: 54 AR: 136 QRS: -6 T: 24 INTERPRETIVE STATEMENTS: Normal sinus rhythm Possible Left atrial enlargement Borderline ECG Compared to ECG 11/20/2017 17:59:36 No significant changes Electronically Signed On 03-31-18 10:55:01 TRAP PULLER by Donis Meredith
== END 2018-03-30 12:36 | disposition short-term general hospital (02) ==
LOC: ER 07:37
DX: R17 Unspecified jaundice (principal); K86.9 Disease of pancreas, unspecified; I10 Essential (primary) hypertension; E78.5 Hyperlipidemia, unspecified; F03.90 Unspecified dementia, unspecified severity, without behavioral disturbance, psychotic disturbance, mood disturbance, and anxiety; Z79.01 Long term (current) use of anticoagulants; Z88.0 Allergy status to penicillin; Z85.3 Personal history of malignant neoplasm of breast; Z85.42 Personal history of malignant neoplasm of other parts of uterus; Z90.12 Acquired absence of left breast and nipple
CPT/HCPCS: 36415; 74177; 76705; 80048; 80076; 83690; 85025; 93005; 99285; Q9967; 81003; 81015

== ENCOUNTER 2018-04-15 11:27 | Emergency (ER) | payer OTHER ==
--- OUTSIDE RECORDS SUMMARY | 2018-04-15 11:37 | XMS REPORT ---
:1945 [facility] Address [address] [place] [address] Dr. Loomis [address] [place] [id number] Care Team Providers Name Role Phone SHANE SOL Unavailable Unavailable Problems This patient has no known problems. Allergies, Adverse Reactions, Alerts This patient has no known allergies or adverse reactions. Medications This patient has no known medications. Results Test Description Test Time Test Comments Text Results Atomic Results Result Comments FINE NEEDLE ASPIRATION 2018-04-04 15:31:00 Medical Cytology Report BY CLINICIAN Case: [id number] Authorizing Provider: Jamie Whatley Collected: 04/01/2018 Antonino Hutchison MD Ordering Location: [address] Received: 04/02/2018 0930 SERVICE Pathologist: Yudy Coffey MD Specimen: Pancreas, pancreas body/tail FNA for routine cyto in CRR Addendum is issued to report additional CPT codes. The original diagnosis remains the same.Additional CPT codes:07043, 37158Ufublmrz electronically signed by Yudy Coffey MD on 04/04/2018 at 3:31 PMPANCREAS BODY/TAIL MASS FNA BY CLINICIAN (CYTOSPINS AND CELL BLOCK OF ASPIRATE): - Adenocarcinoma, see comment Signing Pathologist Direct Phone Line: [phone] signed by Yudy Coffey MD on 04/04/2018 at 3:02 PMDiagnostic material is present mainly on the cell block. Patient chart was reviewed and history of breast and endometrial cancers is noted and immunohistochemistry was performed. Negative staining with Pax8 and GATA3 makes a Mullerian and/ or breast primaries less likely. Clinical correlation is required. Please also see [id number] report on this [id number], 92981Deksixxqks mass, history of endometrial cancerPANCREAS BODY/TAIL MASS FNA32 mls in cytorich red; 4 cytospins, cell blockCollected: [id number]: [id number] interpretation of this case included the use of immunohistochemistry or special stains. Immunohistochemistry technical testing was performed at [facility], Pathology Laboratory where it was developed and its performance characteristics were determined. It has not been cleared or approved by the U.S. Food and Drug Administration. The FDA has determined that such clearance or approval is not necessary. The test is used for clinical purposes. It should not be regarded as investigational or for research. This laboratory is certified under the Clinical Laboratory Improvement Amendments of 1988 (CLIA-88) as qualified to perform high complexity clinical laboratory testing.Immunohistochemistry is negative for GATA3 and Pax8.[facility], Department of Pathology, [address] [place] [address], [facility], [address] [place] [address], [facility], [facility] of [facility], [address] [place] [address], TISSUE EXAM 2018-04-03 13:08:00 Surgical Pathology Report Case: [id number] Authorizing Provider: Jamie Whatley Collected: 04/01/2018 1643 MD Foster Ordering Location: [address] Received: 04/02/2018 0831 SERVICE Pathologist: Madiha Loredo MD Specimen: Pancreas, PANCREAS BODY/TAIL FINE NEEDLE BIOPSY PANCREAS, BODY/TAIL, UPPER EUS, BIOPSY OF MASS: - ADENOCARCINOMA Signing Pathologist Direct Phone Line: [phone] signed by Madiha Loredo MD on 04/03/2018 at 1:08 [id number] massPancreas body/tail fine needle biopsy The specimen is received in a formalin-filled container labeled with the patient's information and labeled "pancreas body/tail fine needle biopsy" and consists of multiple fragments of rai soft tissue ranging from less than 0.1 to 0.4 cm, submitted entirely in A1. CG/ew PERFORMED FINE NEEDLE ASPIRATE (FNA) REQUEST 2018-04-02 11:01:00 Test Item Value Reference Range Comments CYTOLOGY RESULT POINTER (BEAKER) (test ttcf=7615) See Separate Report [id number] 08:44:00 Test Item Value Reference Range Comments PHOSPHORUS (BEAKER) (test eajb=205) 3.3 mg/dL 2.3-4.7 [id number] 08:44:00 Test Item Value Reference Range Comments MAGNESIUM (BEAKER) (test dmfv=701) 2.0 mg/dL 1.6-2.6 BASIC METABOLIC [id number] 08:44:00 Test Item Value Reference Range Comments SODIUM (BEAKER) (test 137 meq/L 136-145 jyhs=172) POTASSIUM (BEAKER) (test 3.8 meq/L 3.5-5.1 ganq=852) CHLORIDE (BEAKER) (test 105 meq/L 98-107 slnt=821) CO2 (BEAKER) (test 23 meq/L 22-29 cscg=789) BLOOD UREA NITROGEN 31 mg/dL 7-21 (BEAKER) (test togm=900) CREATININE (BEAKER) (test 1.36 mg/dL 0.57-1.25 fvju=981) GLUCOSE RANDOM (BEAKER) 132 mg/dL 70-105 (test ntpg=926) CALCIUM (BEAKER) (test 8.8 mg/dL 8.4-10.2 wnpb=624) EGFR (BEAKER) (test 38 mL/min/1.73 sq m ESTIMATED GFR IS NOT lifu=3850) ACCURATE CREATININE CLEARANCE IN PREDICTING GLOMERULAR FILTRATION RATE. ESTIMATED GFR IS NOT APPLICABLE FOR DIALYSIS PATIENTS. Specimen moderately ictericHEPATIC FUNCTION [id number] 08:44:00 Test Item Value Reference Range Comments TOTAL PROTEIN (BEAKER) (test wlni=742) 5.2 gm/dL 6.0-8.3 ALBUMIN (BEAKER) (test vfpv=2426) 2.9 g/dL 3.5-5.0 BILIRUBIN TOTAL (BEAKER) (test skwm=589) 9.2 mg/dL 0.2-1.2 BILIRUBIN DIRECT (BEAKER) (test culy=325) 6.8 mg/dL 0.1-0.5 ALKALINE PHOSPHATASE (BEAKER) (test hhfw=429) 1234 U/L 40-150 AST (SGOT) (BEAKER) (test javy=845) 194 U/L 5-34 ALT (SGPT) (BEAKER) (test urdv=732) 247 U/L 6-55 Specimen moderately ictericCBC W/PLT COUNT & AUTO [id number] 07: 12:00 Test Item Value Reference Range Comments WHITE BLOOD CELL COUNT 10.3 K/ L 3.5-10.5 (BEAKER) (test bwxr=104) RED BLOOD CELL COUNT (BEAKER) 3.52 M/ L 3.93-5.22 (test pcbp=589) HEMOGLOBIN (BEAKER) (test 10.2 GM/DL 11.2-15.7 evyp=204) HEMATOCRIT (BEAKER) (test 32.0 % 34.1-44.9 wpto=212) MEAN CORPUSCULAR VOLUME 90.9 fL 79.4-94.8 (BEAKER) (test ksaj=136) MEAN CORPUSCULAR HEMOGLOBIN 29.0 pg 25.6-32.2 (BEAKER) (test svui=597) MEAN CORPUSCULAR HEMOGLOBIN 31.9 GM/DL 32.2-35.5 CONC (BEAKER) (test skso=990) RED CELL DISTRIBUTION WIDTH 16.8 % 11.7-14.4 (BEAKER) (test rpkf=680) PLATELET COUNT (BEAKER) (test 48 K/CU MM 150-450 wysi=203) MEAN PLATELET VOLUME (BEAKER) fL 9.4-12.3 Unable to report due to (test rqhh=166) abnormal Platelet population distribution. NUCLEATED RED BLOOD CELLS 0 /100 WBC 0-0 (BEAKER) (test wvov=576) NEUTROPHILS RELATIVE PERCENT 77 % (BEAKER) (test ijar=302) LYMPHOCYTES RELATIVE PERCENT 10 % (BEAKER) (test buka=362) MONOCYTES RELATIVE PERCENT 10 % (BEAKER) (test snuy=310) EOSINOPHILS RELATIVE PERCENT 1 % (BEAKER) (test dfuc=564) BASOPHILS RELATIVE PERCENT 1 % (BEAKER) (test gfhc=884) NEUTROPHILS ABSOLUTE COUNT 8.01 K/ L 1.56-6.13 (BEAKER) (test ifgd=499) LYMPHOCYTES ABSOLUTE COUNT 1.02 K/ L 1.18-3.74 (BEAKER) (test gerv=950) MONOCYTES ABSOLUTE COUNT 1.03 K/ L 0.24-0.36 (BEAKER) (test suqn=856) EOSINOPHILS ABSOLUTE COUNT 0.10 K/ L 0.04-0.36 (BEAKER) (test vwus=439) BASOPHILS ABSOLUTE COUNT 0.05 K/ L 0.01-0.08 (BEAKER) (test eaue=079) IMMATURE GRANULOCYTES-RELATIVE 1 % 0-1 PERCENT (BEAKER) (test ghba=7553) PROTHROMBIN [id number] 07:10:00 Test Item Value Reference Range Comments PROTIME (BEAKER) (test dbvr=761) 18.4 seconds 11.7-14.7 INR (BEAKER) (test oowk=483) 1.5 <=5.9 RECOMMENDED COUMADIN/WARFARIN INR THERAPY RANGESSTANDARD DOSE: 2.0 - 3.0 Includes: PROPHYLAXIS forvenous thrombosis, systemic embolization; TREATMENT for venous thrombosis and/or pulmonary embolus.HIGH RISK: Target INR is 2.5-3.5 for patients with mechanical heart valves.VT, [id number] 19:37:00INTRA OP IMAGINGReason for exam:->abnormal imagingFINAL REPORT Intraoperative fluoroscopy. CLINICAL HISTORY: abnormal imaging. FINDINGS: Five fluoroscopically acquired images were acquired by the referring physician. An intraoperative verbal report was not requested. Fluoroscopy was not performed by the undersigned. Fluoroscopytime: 77 seconds. Five images. Signed: Milton Pulido MDReport Verified Date/Time: 04/01/2018 19:37:08 Reading Location: [address] Consult Reading Room PERIPHERAL BLOOD SMEAR - PATHOLOGIST [id number] 08:19:00 Test Item Value Reference Range Comments PERIPHERAL SMR REVIEW No circulating blasts. No (BEAKER) (test jmkt=6305) signficantly increased schistocytes. [id number] Shan Erwin (BEAKER) (test adur=6793) Ricardo(electronic signature) [id number] 07:28:00 Test Item Value Reference Range Comments PHOSPHORUS (BEAKER) (test gglg=757) 2.8 mg/dL 2.3-4.7 [id number] 07:28:00 Test Item Value Reference Range Comments MAGNESIUM (BEAKER) (test aucr=581) 2.1 mg/dL 1.6-2.6 BASIC METABOLIC [id number] 07:28:00 Test Item Value Reference Range Comments SODIUM (BEAKER) (test 136 meq/L 136-145 cbbb=800) POTASSIUM (BEAKER) (test 3.9 meq/L 3.5-5.1 nnjs=209) CHLORIDE (BEAKER) (test 105 meq/L 98-107 eiho=703) CO2 (BEAKER) (test 22 meq/L 22-29 xpqx=754) BLOOD UREA NITROGEN 33 mg/dL 7-21 (BEAKER) (test mrtw=826) CREATININE (BEAKER) (test 1.41 mg/dL 0.57-1.25 kqvo=283) GLUCOSE RANDOM (BEAKER) 104 mg/dL 70-105 (test scne=123) CALCIUM (BEAKER) (test 8.4 mg/dL 8.4-10.2 rrju=875) EGFR (BEAKER) (test 37 mL/min/1.73 sq m ESTIMATED GFR IS NOT mscb=3651) ACCURATE CREATININE CLEARANCE IN PREDICTING GLOMERULAR FILTRATION RATE. ESTIMATED GFR IS NOT APPLICABLE FOR DIALYSIS PATIENTS. Specimen moderately ictericHEPATIC FUNCTION [id number] 07:28:00 Test Item Value Reference Range Comments TOTAL PROTEIN (BEAKER) (test ywmy=707) 5.1 gm/dL 6.0-8.3 ALBUMIN (BEAKER) (test lazg=6709) 2.9 g/dL 3.5-5.0 BILIRUBIN TOTAL (BEAKER) (test aeyn=672) 8.6 mg/dL 0.2-1.2 BILIRUBIN DIRECT (BEAKER) (test ojcj=265) 6.5 mg/dL 0.1-0.5 ALKALINE PHOSPHATASE (BEAKER) (test azwo=756) 1188 U/L 40-150 AST (SGOT) (BEAKER) (test uxwz=384) 214 U/L 5-34 ALT (SGPT) (BEAKER) (test uwtu=108) 252 U/L 6-55 Specimen moderately ictericPROTHROMBIN [id number] 06:59:00 Test Item Value Reference Range Comments PROTIME (BEAKER) (test koox=898) 16.7 seconds 11.7-14.7 INR (BEAKER) (test jnwc=777) 1.3 <=5.9 RECOMMENDED COUMADIN/WARFARIN INR THERAPY RANGESSTANDARD DOSE: 2.0 - 3.0 Includes: PROPHYLAXIS forvenous thrombosis, systemic embolization; TREATMENT for venous thrombosis and/or pulmonary embolus.HIGH RISK: Target INR is 2.5-3.5 for patients with mechanical heart valves.CBC W/PLT COUNT & AUTO [id number] 06:51:00 Test Item Value Reference Range Comments WHITE BLOOD CELL COUNT (BEAKER) (test poev=276) 9.6 K/ L 3.5-10.5 RED BLOOD CELL COUNT (BEAKER) (test qihl=306) 3.48 M/ L 3.93-5.22 HEMOGLOBIN (BEAKER) (test ynaf=834) 10.0 GM/DL 11.2-15.7 HEMATOCRIT (BEAKER) (test usby=332) 32.1 % 34.1-44.9 MEAN CORPUSCULAR VOLUME (BEAKER) (test tpyh=949) 92.2 fL 79.4-94.8 MEAN CORPUSCULAR HEMOGLOBIN (BEAKER) (test 28.7 pg 25.6-32.2 wlxd=270) MEAN CORPUSCULAR HEMOGLOBIN CONC (BEAKER) (test 31.2 GM/DL 32.2-35.5 ggps=333) RED CELL DISTRIBUTION WIDTH (BEAKER) (test 16.5 % 11.7-14.4 rohu=909) PLATELET COUNT (BEAKER) (test etqu=409) 43 K/CU MM 150-450 MEAN PLATELET VOLUME (BEAKER) (test qpjf=012) 12.7 fL 9.4-12.3 NUCLEATED RED BLOOD CELLS (BEAKER) (test 0 /100 WBC 0-0 vtif=773) NEUTROPHILS RELATIVE PERCENT (BEAKER) (test 74 % ddec=842) LYMPHOCYTES RELATIVE PERCENT (BEAKER) (test 13 % vfcg=729) MONOCYTES RELATIVE PERCENT (BEAKER) (test 10 % mldh=013) EOSINOPHILS RELATIVE PERCENT (BEAKER) (test 2 % ylxi=404) BASOPHILS RELATIVE PERCENT (BEAKER) (test 1 % wbqz=995) NEUTROPHILS ABSOLUTE COUNT (BEAKER) (test 7.08 K/ L 1.56-6.13 gesz=801) LYMPHOCYTES ABSOLUTE COUNT (BEAKER) (test 1.21 K/ L 1.18-3.74 jcxr=656) MONOCYTES ABSOLUTE COUNT (BEAKER) (test uqqk=041) 0.94 K/ L 0.24-0.36 EOSINOPHILS ABSOLUTE COUNT (BEAKER) (test 0.23 K/ L 0.04-0.36 oygj=890) BASOPHILS ABSOLUTE COUNT (BEAKER) (test rltq=590) 0.05 K/ L 0.01-0.08 IMMATURE GRANULOCYTES-RELATIVE PERCENT (BEAKER) 1 % 0-1 (test vpdp=5379) [id number] 07:25:00 Test Item Value Reference Range Comments PHOSPHORUS (BEAKER) (test gmyn=008) 3.2 mg/dL 2.3-4.7 [id number] 07:25:00 Test Item Value Reference Range Comments MAGNESIUM (BEAKER) (test zxkr=144) 2.1 mg/dL 1.6-2.6 BASIC METABOLIC [id number] 07:25:00 Test Item Value Reference Range Comments SODIUM (BEAKER) (test 135 meq/L 136-145 kjqy=733) POTASSIUM (BEAKER) (test 3.6 meq/L 3.5-5.1 qbud=614) CHLORIDE (BEAKER) (test 105 meq/L 98-107 eiao=724) CO2 (BEAKER) (test 22 meq/L 22-29 hguo=882) BLOOD UREA NITROGEN 34 mg/dL 7-21 (BEAKER) (test brpp=824) CREATININE (BEAKER) (test 1.55 mg/dL 0.57-1.25 mlts=606) GLUCOSE RANDOM (BEAKER) 124 mg/dL 70-105 (test zlhs=151) CALCIUM (BEAKER) (test 8.2 mg/dL 8.4-10.2 mpyl=753) EGFR (BEAKER) (test 33 mL/min/1.73 sq m ESTIMATED GFR IS NOT qxix=0546) ACCURATE CREATININE CLEARANCE IN PREDICTING GLOMERULAR FILTRATION RATE. ESTIMATED GFR IS NOT APPLICABLE FOR DIALYSIS PATIENTS. Specimen moderately ictericHEPATIC FUNCTION [id number] 07:25:00 Test Item Value Reference Range Comments TOTAL PROTEIN (BEAKER) (test gpql=182) 5.1 gm/dL 6.0-8.3 ALBUMIN (BEAKER) (test cdpw=4016) 2.9 g/dL 3.5-5.0 BILIRUBIN TOTAL (BEAKER) (test klgc=943) 6.9 mg/dL 0.2-1.2 BILIRUBIN DIRECT (BEAKER) (test yose=521) 5.5 mg/dL 0.1-0.5 ALKALINE PHOSPHATASE (BEAKER) (test pabu=273) 1073 U/L 40-150 AST (SGOT) (BEAKER) (test wtha=854) 186 U/L 5-34 ALT (SGPT) (BEAKER) (test yxhb=201) 246 U/L 6-55 Specimen moderately ictericCBC W/PLT COUNT & AUTO [id number] 07: 21:00 Test Item Value Reference Range Comments WHITE BLOOD CELL COUNT (BEAKER) (test znjw=808) 12.1 K/ L 3.5-10.5 RED BLOOD CELL COUNT (BEAKER) (test ljsp=809) 3.85 M/ L 3.93-5.22 HEMOGLOBIN (BEAKER) (test xule=555) 11.0 GM/DL 11.2-15.7 HEMATOCRIT (BEAKER) (test wzub=920) 36.4 % 34.1-44.9 MEAN CORPUSCULAR VOLUME (BEAKER) (test bkgx=414) 94.5 fL 79.4-94.8 MEAN CORPUSCULAR HEMOGLOBIN (BEAKER) (test 28.6 pg 25.6-32.2 iomy=604) MEAN CORPUSCULAR HEMOGLOBIN CONC (BEAKER) (test 30.2 GM/DL 32.2-35.5 yimj=064) RED CELL DISTRIBUTION WIDTH (BEAKER) (test 15.9 % 11.7-14.4 ntol=054) PLATELET COUNT (BEAKER) (test fttl=871) 58 K/CU MM 150-450 MEAN PLATELET VOLUME (BEAKER) (test oioq=113) 13.2 fL 9.4-12.3 NUCLEATED RED BLOOD CELLS (BEAKER) (test 0 /100 WBC 0-0 jcgg=896) NEUTROPHILS RELATIVE PERCENT (BEAKER) (test 78 % rbjv=748) LYMPHOCYTES RELATIVE PERCENT (BEAKER) (test 11 % ckgk=695) MONOCYTES RELATIVE PERCENT (BEAKER) (test 8 % yxai=431) EOSINOPHILS RELATIVE PERCENT (BEAKER) (test 1 % jero=228) BASOPHILS RELATIVE PERCENT (BEAKER) (test 1 % lwou=831) NEUTROPHILS ABSOLUTE COUNT (BEAKER) (test 9.36 K/ L 1.56-6.13 zgzi=993) LYMPHOCYTES ABSOLUTE COUNT (BEAKER) (test 1.32 K/ L 1.18-3.74 twzx=262) MONOCYTES ABSOLUTE COUNT (BEAKER) (test mkay=841) 0.99 K/ L 0.24-0.36 EOSINOPHILS ABSOLUTE COUNT (BEAKER) (test 0.09 K/ L 0.04-0.36 eeel=320) BASOPHILS ABSOLUTE COUNT (BEAKER) (test bzuy=637) 0.10 K/ L 0.01-0.08 IMMATURE GRANULOCYTES-RELATIVE PERCENT (BEAKER) 2 % 0-1 (test zvzt=0343) PROTHROMBIN [id number] 07:21:00 Test Item Value Reference Range Comments PROTIME (BEAKER) (test tzvf=366) 16.8 seconds 11.7-14.7 INR (BEAKER) (test nlal=376) 1.4 <=5.9 RECOMMENDED COUMADIN/WARFARIN INR THERAPY RANGESSTANDARD DOSE: 2.0 - 3.0 Includes: PROPHYLAXIS forvenous thrombosis, systemic embolization; TREATMENT for venous thrombosis and/or pulmonary embolus.HIGH RISK: Target INR is 2.5-3.5 for patients with mechanical heart valves.CARCINOEMBRYONIC ANTIGEN (CEA) 22:20:00 Test Item Value Reference Range Comments CARCINOEMBRYONIC ANTIGEN (BEAKER) (test otmw=022) 53.7 ng/mL 0.0-5.0 TSH/FREE T4 IF [id number] 21:46:00 Test Item Value Reference Range Comments THYROID STIMULATING HORMONE (BEAKER) (test 2.49 uIU/mL 0.35-4.94 ollb=194) VITAMIN B12 AND [id number] 21:46:00 Test Item Value Reference Range Comments VITAMIN B12 (BEAKER) (test amar=350) 1248 pg/mL 213-816 FOLATE (BEAKER) (test qhyy=350) 7.1 ng/mL >=7.0 (MANUAL DIFFERENTIAL)2018-03-30 21:33:00 Test Item Value Reference Range Comments NEUTROPHILS - REL (DIFF) (BEAKER) (test yuyk=6402) 78 % LYMPHOCYTES - REL (DIFF) (BEAKER) (test ukjt=6399) 12 % MONOCYTES - REL (DIFF) (BEAKER) (test fdwn=1874) 7 % EOSINOPHILS - REL (DIFF) (BEAKER) (test vusq=6792) 2 % BANDS - REL (DIFF) (BEAKER) (test peag=6089) 1 % 0-10 TOTAL COUNTED (BEAKER) (test tqjo=7679) 100 WBC MORPHOLOGY (BEAKER) (test wncj=078) Normal PLT MORPHOLOGY (BEAKER) (test rzfw=610) Normal RBC MORPHOLOGY (BEAKER) (test spqn=805) Normal COMPREHENSIVE METABOLIC [id number] 21:11:00 Test Item Value Reference Range Comments TOTAL PROTEIN (BEAKER) 5.1 gm/dL 6.0-8.3 (test srfd=016) ALBUMIN (BEAKER) (test 2.9 g/dL 3.5-5.0 quib=0387) ALKALINE PHOSPHATASE 1024 U/L 40-150 (BEAKER) (test hjtc=654) BILIRUBIN TOTAL (BEAKER) 7.6 mg/dL 0.2-1.2 (test enxt=346) SODIUM (BEAKER) (test 134 meq/L 136-145 lncg=065) POTASSIUM (BEAKER) (test 3.5 meq/L 3.5-5.1 nsnk=434) CHLORIDE (BEAKER) (test 104 meq/L 98-107 ijsj=689) CO2 (BEAKER) (test 21 meq/L 22-29 caxc=356) BLOOD UREA NITROGEN 33 mg/dL 7-21 (BEAKER) (test lmpe=268) CREATININE (BEAKER) (test 1.19 mg/dL 0.57-1.25 kedg=286) GLUCOSE RANDOM (BEAKER) 191 mg/dL 70-105 (test wekg=458) CALCIUM (BEAKER) (test 8.1 mg/dL 8.4-10.2 wstq=086) AST (SGOT) (BEAKER) (test 194 U/L 5-34 oflu=513) ALT (SGPT) (BEAKER) (test 267 U/L 6-55 pttd=784) EGFR (BEAKER) (test 45 mL/min/1.73 sq m ESTIMATED GFR IS NOT nven=1284) ACCURATE CREATININE CLEARANCE IN PREDICTING GLOMERULAR FILTRATION RATE. ESTIMATED GFR IS NOT APPLICABLE FOR DIALYSIS PATIENTS. Specimen moderately ictericPT/[id number] 21:06:00 Test Item Value Reference Range Comments PROTIME (BEAKER) (test amkc=199) 17.3 seconds 11.7-14.7 INR (BEAKER) (test gayh=562) 1.4 <=5.9 PARTIAL THROMBOPLASTIN TIME (BEAKER) (test 31.8 seconds 22.5-36.0 cpti=184) RECOMMENDED COUMADIN/WARFARIN INR THERAPY RANGESSTANDARD DOSE: 2.0 - 3.0 Includes: PROPHYLAXIS forvenous thrombosis, systemic embolization; TREATMENT for venous thrombosis and/or pulmonary embolus.HIGH RISK: Target INR is 2.5-3.5 for patients with mechanical heart valves.[id number] 21:03:00 Test Item Value Reference Range Comments AMMONIA (BEAKER) (test mapr=957) 46 mol/L 18-72 CBC (HEMOGRAM ONLY)2018-03-30 20:51:00 Test Item Value Reference Range Comments WHITE BLOOD CELL COUNT (BEAKER) (test iudy=966) 10.4 K/ L 3.5-10.5 RED BLOOD CELL COUNT (BEAKER) (test tdvb=298) 3.31 M/ L 3.93-5.22 HEMOGLOBIN (BEAKER) (test jmcy=140) 9.7 GM/DL 11.2-15.7 HEMATOCRIT (BEAKER) (test ovbx=931) 30.3 % 34.1-44.9 MEAN CORPUSCULAR VOLUME (BEAKER) (test jskz=876) 91.5 fL 79.4-94.8 MEAN CORPUSCULAR HEMOGLOBIN (BEAKER) (test 29.3 pg 25.6-32.2 irqo=982) MEAN CORPUSCULAR HEMOGLOBIN CONC (BEAKER) (test 32.0 GM/DL 32.2-35.5 ppum=585) RED CELL DISTRIBUTION WIDTH (BEAKER) (test 15.6 % 11.7-14.4 ptcs=042) PLATELET COUNT (BEAKER) (test erqm=629) 44 K/CU MM 150-450 MEAN PLATELET VOLUME (BEAKER) (test zsjs=598) 11.5 fL 9.4-12.3 NUCLEATED RED BLOOD CELLS (BEAKER) (test 0 /100 WBC 0-0 spol=562) RAD, CHEST, 1 VIEW, NON [id number] 17:40:00Reason for exam:->coughShould this be performed at the bedside?->YesFINAL REPORT Chest, one view History: Cough Comparison: none Findings:Clear lungs. Normal size heart. No pleural effusion or pneumothorax. 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 Impression:No acute findings in the chest Signed: Germán Montanez [facility] Verified Date/Time: 03/30/2018 17:40:06 Reading Location: [facility] B1 C013Y CT Body Reading Room
--- OUTSIDE RECORDS SUMMARY | 2018-04-15 11:37 | XMS REPORT | Clinical Summary ---
:1945 Author Organization [facility] Address [address] [place] [address] Care Team Providers Name Role Phone Unavailable Primary Care Provider Unavailable Allergies Active Allergy Reactions Severity Noted Date Comments Penicillins 03/30/2018 Medications Medication Sig Dispensed Refills Start Date End Date Status donepezil (ARICEPT) 5 Take 5 mg by 0 Active MG tabletIndications: mouth Mild to Moderate nightly. Alzheimer's Type Dementia simvastatin (ZOCOR) Take 20 mg 0 Active 20 MG by mouth tabletIndications: nightly. hyperlipidemia rivaroxaban (XARELTO) Take 1 0 04/03/2018 Active 20 mg Tab tablet (20 tabletIndications: mg total) by Prevention of Deep mouth daily Vein Thrombosis with dinner. Recurrence folic acid (FOLVITE) Take 1 30 tablet 0 04/03/2018 05/03/2018 Active 1 MG tablet tablet (1 mg total) by mouth daily for 30 days. rivaroxaban (XARELTO) Take 20 mg 0 04/02/2018 Discontinued 20 mg Tab by mouth tabletIndications: daily with Prevention of Deep dinner. Vein Thrombosis Recurrence losartan-hydroCHLOROt Take 1 0 04/02/2018 Discontinued hiazide (HYZAAR) tablet by 50-12.5 mg per mouth daily. tabletIndications: hypertension levoFLOXacin Take 1 5 tablet 0 04/02/2018 04/07/2018 (LEVAQUIN) 250 MG tablet (250 tablet mg total) by mouth daily for 5 days. 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 03/30/2018 Encounters Date Type Specialty Care Team Description 04/01/2018 Anesthesia Event Gastroenterology Angélica Weaver CRNA 04/01/2018 Surgery Gastroenterology Jamie Whatley ERCP,PAPILLOTOMY Phylicia Hutchison MD 03/30/2018 - Hospital Encounter Oncology Gadicherla, Obstructive jaundice due to cancer (HCC); 04/02/2018 [place]illian Pancreatic mass; MD Paresh Liver masses; Rylie Chu Bile duct obstruction, intrahepatic; MD Brent Late onset Alzheimer's disease without behavioral disturbance; Samuel Orona Acute encephalopathy MD Jamarcus Flores III, Anita Palomino MD 03/30/2018 Travel after 04/14/2017 Family History Medical History Relation Name Comments Cancer Mother Relation Name Status Comments Mother Social History Tobacco Use Types Packs/Day Years Used Date Never Smoker Smokeless Tobacco: Never Used Alcohol Use Drinks/Week oz/Week Comments No Alcohol Habits Answer Date Recorded How often do you have a drink containing alcohol? Never 03/30/2018 How many drinks containing alcohol do you have on a typical Not asked day when you are drinking? How often do you have six or more drinks on one occasion? Never 03/30/2018 Sex Assigned at Date Recorded Not on file Job Start Date Occupation Industry Not on file Not on file Not on file Travel History Travel Start Travel End No recent travel history available. Last Filed Vital Signs Vital Sign Reading Time Taken Blood Pressure 118/70 04/02/2018 12:00 PM MONITORING SPECIALIST Pulse 89 04/02/2018 12:00 PM MONITORING SPECIALIST Temperature 37 C (98.6 F) 04/02/2018 12:00 PM MONITORING SPECIALIST Respiratory Rate 18 04/02/2018 12:00 PM MONITORING SPECIALIST Oxygen Saturation 98% 04/02/2018 12:00 PM MONITORING SPECIALIST Inhaled Oxygen Concentration - - Weight 56.7 kg (125 lb) 04/01/2018 3:37 PM MONITORING SPECIALIST Height - - Body Mass Index - - Plan of Treatment Not on file Implants Implanted Type Area Board Worker Device Shelf Model / Identifier Expiration Serial / Lot Date Stent Wallflex Adelfo Rx [id number] - [id number] Stents-P N/A: [employer]: ENDO 08/27/2019 7063 / Implanted: Qty: 1 on 04/01/2018 by Jamie Whatley MD eriphera Bile [id number] / l Duct [id number] Procedures Procedure Name Priority Date/Time Associated Comments Diagnosis REPORT OF PROCEDURE - 04/02/2018 5:00 ENDOSCOPY URL PM MONITORING SPECIALIST REPORT OF PROCEDURE - 04/02/2018 4:57 ENDOSCOPY URL PM MONITORING SPECIALIST CBC W/PLT COUNT & AUTO Routine 04/02/2018 6:46 Results for this DIFFERENTIAL AM MONITORING SPECIALIST procedure are in the results section. CBC W/PLT COUNT & AUTO Routine 04/02/2018 6:46 Results for this DIFFERENTIAL AM MONITORING SPECIALIST procedure are in the results section. PROTHROMBIN TIME/INR Routine 04/02/2018 6:46 Results for this AM MONITORING SPECIALIST procedure are in the results section. PHOSPHORUS Routine 04/02/2018 6:46 Results for this AM MONITORING SPECIALIST procedure are in the results section. MAGNESIUM Routine 04/02/2018 6:46 Results for this AM MONITORING SPECIALIST procedure are in the results section. HEPATIC FUNCTION PANEL Routine 04/02/2018 6:46 Results for this AM MONITORING SPECIALIST procedure are in the results section. BASIC METABOLIC PANEL Routine 04/02/2018 6:46 Results for this (7) AM MONITORING SPECIALIST procedure are in the results section. FL ERCP Routine 04/01/2018 5:25 Results for this PM MONITORING SPECIALIST procedure are in the results section. FINE NEEDLE ASPIRATE Routine 04/01/2018 4:43 Results for this (FNA) REQUEST PM MONITORING SPECIALIST procedure are in the results section. FINE NEEDLE ASPIRATION AP Routine 04/01/2018 4:43 Results for this BY CLINICIAN PM MONITORING SPECIALIST procedure are in the results section. TISSUE EXAM AP Routine 04/01/2018 4:43 Results for this PM MONITORING SPECIALIST procedure are in the results section. ERCP,BILIARY STENT 04/01/2018 4:00 Pancreatic mass PM MONITORING SPECIALIST ERCP,BALLOON SWEEPING 04/01/2018 4:00 Pancreatic mass PM MONITORING SPECIALIST PROCEDURE W/ C-ARM 04/01/2018 4:00 Pancreatic mass PM MONITORING SPECIALIST UPPER 04/01/2018 4:00 Pancreatic mass ENDOSCOPY,ULTRASOUND PM MONITORING SPECIALIST ERCP,PAPILLOTOMY 04/01/2018 4:00 Pancreatic mass PM MONITORING SPECIALIST CBC W/PLT COUNT & AUTO Routine 04/01/2018 6:13 Results for this DIFFERENTIAL AM MONITORING SPECIALIST procedure are in the results section. CBC W/PLT COUNT & AUTO Routine 04/01/2018 6:13 Results for this DIFFERENTIAL AM MONITORING SPECIALIST procedure are in the results section. PROTHROMBIN TIME/INR Routine 04/01/2018 6:13 Results for this AM MONITORING SPECIALIST procedure are in the results section. PHOSPHORUS Routine 04/01/2018 6:13 Results for this AM MONITORING SPECIALIST procedure are in the results section. MAGNESIUM Routine 04/01/2018 6:13 Results for this AM MONITORING SPECIALIST procedure are in the results section. HEPATIC FUNCTION PANEL Routine 04/01/2018 6:13 Results for this AM MONITORING SPECIALIST procedure are in the results section. BASIC METABOLIC PANEL Routine 04/01/2018 6:13 Results for this (7) AM MONITORING SPECIALIST procedure are in the results section. CBC W/PLT COUNT & AUTO Routine 03/31/2018 6:48 Results for this DIFFERENTIAL AM MONITORING SPECIALIST procedure are in the results section. CBC W/PLT COUNT & AUTO Routine 03/31/2018 6:48 Results for this DIFFERENTIAL AM MONITORING SPECIALIST procedure are in the results section. PROTHROMBIN TIME/INR Routine 03/31/2018 6:48 Results for this AM MONITORING SPECIALIST procedure are in the results section. PHOSPHORUS Routine 03/31/2018 6:48 Results for this AM MONITORING SPECIALIST procedure are in the results section. MAGNESIUM Routine 03/31/2018 6:48 Results for this AM MONITORING SPECIALIST procedure are in the results section. HEPATIC FUNCTION PANEL Routine 03/31/2018 6:48 Results for this AM MONITORING SPECIALIST procedure are in the results section. BASIC METABOLIC PANEL Routine 03/31/2018 6:48 Results for this (7) AM MONITORING SPECIALIST procedure are in the results section. (MANUAL DIFFERENTIAL) Routine 03/30/2018 8:32 Results for this PM MONITORING SPECIALIST procedure are in the results section. AMMONIA Routine 03/30/2018 8:32 Results for this PM MONITORING SPECIALIST procedure are in the results section. VITAMIN B12 AND FOLATE Routine 03/30/2018 8:32 Results for this PM MONITORING SPECIALIST procedure are in the results section. PERIPHERAL BLOOD SMEAR - Routine 03/30/2018 8:32 Results for this PATHOLOGIST REVIEW PM MONITORING SPECIALIST procedure are in the results section. CARCINOEMBRYONIC ANTIGEN Routine 03/30/2018 8:32 Results for this (CEA) PM MONITORING SPECIALIST procedure are in the results section. TSH/FREE T4 IF INDICATED Routine 03/30/2018 8:32 Results for this PM MONITORING SPECIALIST procedure are in the results section. CARBOHYDRATE ANTIGEN Routine 03/30/2018 8:32 Results for this 19-9 (CA 19-9) PM MONITORING SPECIALIST procedure are in the results section. CBC (HEMOGRAM ONLY) Routine 03/30/2018 8:32 Results for this PM MONITORING SPECIALIST procedure are in the results section. PT/APTT Routine 03/30/2018 8:32 Results for this PM MONITORING SPECIALIST procedure are in the results section. COMPREHENSIVE METABOLIC Routine 03/30/2018 8:32 Results for this PANEL PM MONITORING SPECIALIST procedure are in the results section. XR CHEST 1 VIEW Routine 03/30/2018 5:30 Results for this PORTABLE/BEDSIDE PM MONITORING SPECIALIST procedure are in the results section. ECG 12-LEAD Routine 03/30/2018 4:28 Results for this PM MONITORING SPECIALIST procedure are in the results section. after 04/14/2017 Results REPORT OF PROCEDURE - ENDOSCOPY URL (04/02/2018 5:00 PM MONITORING SPECIALIST) Narrative Performed At REPORT OF PROCEDURE - ENDOSCOPY URL (04/02/2018 4:57 PM MONITORING SPECIALIST) Narrative Performed At CBC with platelet count + automated diff (04/02/2018 6:46 AM MONITORING SPECIALIST)Only the most recent of3 resultswithin the time period is included. WBC 10.3 3.5 - 10.5 K/L [facility] RBC 3.52 (L) 3.93 - 5.22 M/L [facility] Hemoglobin 10.2 (L) 11.2 - 15.7 GM/DL [facility] Hematocrit 32.0 (L) 34.1 - 44.9 % [facility] MCV 90.9 79.4 - 94.8 fL [facility] MCH 29.0 25.6 - 32.2 pg [facility] MCHC 31.9 (L) 32.2 - 35.5 GM/DL [facility] RDW 16.8 (H) 11.7 - 14.4 % [facility] Platelets 48 (L) 150 - 450 K/CU MM [facility] MPV Comment: Unable to 9.4 - 12.3 fL [facility] report due to abnormal [facility] Platelet population distribution. nRBC 0 0 - 0 /100 WBC [facility] % Neutros 77 % [facility] % Lymphs 10 % [facility] % Monos 10 % [facility] % Eos 1 % [facility] % Baso 1 % [facility] # Neutros 8.01 (H) 1.56 - 6.13 K/L [facility] # Lymphs 1.02 (L) 1.18 - 3.74 K/L [facility] # Monos 1.03 (H) 0.24 - 0.36 K/L [facility] # Eos 0.10 0.04 - 0.36 K/L [facility] # Baso 0.05 0.01 - 0.08 K/L [facility] Immature 1 0 - 1 % [facility] Granulocytes-Relative [facility] Specimen Blood Performing Organization Address City/[facility]code Phone Number [address] [address] CENTER Prothrombin time/INR (04/02/2018 6:46 AM MONITORING SPECIALIST)Only the most recent of3 resultswithin the time period is included. Protime 18.4 (H) 11.7 - 14.7 seconds [facility] INR 1.5 <=5.9 [facility] Specimen Blood Narrative Performed At RECOMMENDED COUMADIN/WARFARIN INR THERAPY [facility] RANGES STANDARD DOSE: 2.0 - 3.0 Includes: PROPHYLAXIS for venous thrombosis, systemic embolization; TREATMENT for venous thrombosis and/or pulmonary embolus. HIGH RISK: Target INR is 2.5-3.5 for patients with mechanical heart valves. Performing Organization Address City/[facility]/Zipcode Phone Number [address] [address] CENTER Phosphorus (04/02/2018 6:46 AM MONITORING SPECIALIST)Only the most recent of3 resultswithin the time period is included. Phosphorus 3.3 2.3 - 4.7 mg/dL [facility] Specimen Blood Performing Organization Address City/[facility]/Zipcode Phone Number [address] [address] [phone] [place] Magnesium (04/02/2018 6:46 AM MONITORING SPECIALIST)Only the most recent of3 resultswithin the time period is included. Magnesium 2.0 1.6 - 2.6 mg/dL [facility] Specimen Blood Performing Organization Address [facility] Hospitalconc Phone Number [phone] [place] [address] [place] Hepatic function panel (04/02/2018 6:46 AM MONITORING SPECIALIST)Only the most recent of3 resultswithin the time period is included. Protein, Total 5.2 (L) 6.0 - 8.3 gm/dL [facility] Albumin 2.9 (L) 3.5 - 5.0 g/dL [facility] Total Bilirubin 9.2 (H) 0.2 - 1.2 mg/dL [facility] Bilirubin, Direct 6.8 (H) 0.1 - 0.5 mg/dL [facility] Alkaline Phosphatase 1,234 (H) 40 - 150 U/L [facility] AST 194 (H) 5 - 34 U/L [facility] ALT 247 (H) 6 - 55 U/L [facility] Specimen Blood Narrative Performed At Specimen moderately icteric [facility] Performing Organization Address City/[facility] Hospitalcode Phone Number [address] [phone] [place] Basic metabolic panel (04/02/2018 6:46 AM MONITORING SPECIALIST)Only the most recent of3 resultswithin the time period is included. Sodium 137 136 - 145 meq/L [facility] Potassium 3.8 3.5 - 5.1 meq/L [facility] Chloride 105 98 - 107 meq/L [facility] CO2 23 22 - 29 meq/L [facility] BUN 31 (H) 7 - 21 mg/dL [facility] Creatinine 1.36 (H) 0.57 - 1.25 mg/dL [facility] Glucose 132 (H) 70 - 105 mg/dL [facility] Calcium 8.8 8.4 - 10.2 mg/dL [facility] EGFR 38Comment: ESTIMATED GFR IS mL/min/1.73 sq m [facility] NOT ACCURATE CREATININE [facility] CLEARANCE IN PREDICTING GLOMERULAR FILTRATION RATE. ESTIMATED GFR IS NOT APPLICABLE FOR DIALYSIS PATIENTS. Specimen Blood Narrative Performed At Specimen moderately icteric [facility] Performing Organization Address City/State/Zipcode Phone Number [phone] [place] [address] CENTER [place] ERCP (04/01/2018 5:25 PM MONITORING SPECIALIST) Narrative Performed At FINAL REPORT [employer] Intraoperative fluoroscopy. CLINICAL HISTORY: abnormal imaging. FINDINGS: Five fluoroscopically acquired images were acquired by the referring physician. An intraoperative verbal report was not requested. Fluoroscopy was not performed by the undersigned. Fluoroscopy time: 77 seconds. Five images. Signed: Milton Pulido MD Report Verified Date/Time:04/01/2018 19:37:08 Reading Location: [address] Consult Reading Room Procedure Note Interface, External Ris In - 04/01/2018 7:39 PM MONITORING SPECIALIST FINAL REPORT Intraoperative fluoroscopy. CLINICAL HISTORY: abnormal imaging. FINDINGS: Five fluoroscopically acquired images were acquired by the referring physician. An intraoperative verbal report was not requested. Fluoroscopy was not performed by the undersigned. Fluoroscopy time: 77 seconds. Five images. Signed: Milton Pulido MD Report Verified Date/Time: 04/01/2018 19:37:08 Reading Location: [address] Consult Reading Room Performing Organization Address City/State/Zipcode Phone Number GE RIS FINE NEEDLE ASPIRATE (FNA) REQUEST (04/01/2018 4:43 PM MONITORING SPECIALIST) Cytology See Separate Report [facility] Specimen Fine Needle Aspirate - Pancreas Performing Organization Address City/State/Zipcode Phone Number [facility] [address] [place] [address] CENTER Fine Needle Aspirate by Clinician (04/01/2018 4:43 PM MONITORING SPECIALIST) Case Report Medical Cytology Report Case: [id number] [facility] Authorizing Provider:Jamie Whatley Collected: 04/01/2018 1643 [facility] MD Foster Ordering Location: [address] Received: 04/02/2018 0943 SERVICE Pathologist: Yudy Coffey MD Specimen:Pancreas, pancreas body/tail FNA for routine cyto in CRR ADDENDUM Addendum is issued to report additional CPT codes. The original diagnosis remains the same. [facility] Additional CPT codes: 88646, 61738 DIAGNOSIS PANCREAS BODY/TAIL MASS FNA BY CLINICIAN (CYTOSPINS AND CELL BLOCK OF ASPIRATE): [facility] - Adenocarcinoma, see comment [facility] Signing Pathologist Direct Phone Line: [phone] COMMENT Diagnostic material is present mainly on the cell block. Patient chart was reviewed and history of breast and endometrial cancers is noted and immunohistochemistry was performed. Negative staining with [facility] Pax8 and GATA3 makes a Mullerian and/ or breast primaries less likely. Clinical correlation is required. [facility] Please also see [id number] report on this patient CPT Code(s) 66801, 13211 [facility] CLINICAL DATA Pancreatic mass, history of [facility] endometrial cancer [facility] SPECIMEN SOURCE PANCREAS BODY/TAIL MASS FNA [facility] GROSS DESCRIPTION 32 mls in cytorich red; 4 cytospins, cell block [facility] Collected: [id number] [facility] Received: [id number] SPECIAL STUDIES The interpretation of this case included the use of immunohistochemistry or special stains. [facility] Immunohistochemistry technical testing was performed at [facility], Pathology Laboratory where it was developed and its performance characteristics were determined. It has not be en cleared or approved by the U.S. Food and Drug Administration. The FDA has determined that such clearance or approval is not necessary. The test is used for clinical purposes. It should not be regarde d as investigational or for research. This laboratory is certified under the Clinical Laboratory Improvement Amendments of 1988 (CLIA-88) as qualified to perform high complexity clinical laboratory testing. Immunohistochemistry is negative for GATA3 and Pax8. Gross assessment was [facility] performed at [place], Department [facility] Pathology, [address] [place] [id number], Technical component was [facility] performed at [place], [facility] Pathology, [address] [place] [id number], Professional component [facility] was performed at [place], Department of [facility] Pathology, [address] [place] [address], Specimen Fine Needle Aspirate - Pancreas Narrative Performed At Performing Organization Address City/State/Zipcode Phone Number [address] [phone] CENTER Tissue Exam (04/01/2018 4:43 PM MONITORING SPECIALIST) Case Report Surgical Pathology Report Case: [id number] [facility] Authorizing Provider:Jamie Whatley Collected: 04/01/2018 1643 [facility] MD Foster Ordering Location: [address] Received: 04/02/2018 0831 SERVICE Pathologist: Madiha Loredo MD Specimen:Pancreas, PANCREAS BODY/TAIL FINE NEEDLE BIOPSY DIAGNOSIS PANCREAS, BODY/TAIL, UPPER EUS, BIOPSY OF MASS: [facility] - ADENOCARCINOMA [facility] Signing Pathologist Direct Phone Line: [phone] CPT Code(s) 27722 [facility] CLINICAL HISTORY Pancreatic mass [facility] SPECIMEN SOURCE Pancreas body/tail fine [facility] needle biopsy [facility] GROSS DESCRIPTION The specimen is received in [facility] a formalin-filled container [facility] labeled with the patient's information and labeled "pancreas body/tail fine needle biopsy" and consists of multiple fragments of rai soft tissue ranging from less than 0.1 to 0.4 cm, submitted entirely in A1. CG/ew MICROSCOPIC DESCRIPTION PERFORMED [facility] Specimen Tissue - Pancreas Performing Organization Address [facility] Hospitalcode Phone Number [address] [address] [place] Manual Differential (03/30/2018 8:32 PM MONITORING SPECIALIST) % Neutros (manual) 78 % [facility] % Lymphs (manual) 12 % [facility] % Monos (manual) 7 % [facility] % Eos (manual) 2 % [facility] % Bands (manual) 1 0 - 10 % [facility] Total Counted 100 [facility] WBC Morphology Normal [facility] Platelet Morphology Normal [facility] RBC Morphology Normal [facility] Specimen Blood - Arm, Right Performing Organization Address [facility] Hospitalcode Phone Number [address] [address] [place] Peripheral Blood Smear - Path Review (03/30/2018 8:32 PM MONITORING SPECIALIST) Pathologist Review No circulating blasts. No [facility] signficantly increased MEDICAL CENTER schistocytes. Pathologist: Shan Erwin [facility] Ricardo(electronic signature) MEDICAL [place] Specimen Blood - Arm, Right Performing Organization Address City/[facility]/Zipcode Phone Number [address] [place] [address] CENTER Vitamin B12 and Folate (03/30/2018 8:32 PM MONITORING SPECIALIST) Vitamin B12 1,248 (H) 213 - 816 pg/mL [facility] Folate 7.1 >=7.0 ng/mL [facility] Specimen Blood - Arm, Right Performing Organization Address [facility] Hospitalconc Phone Number [address] [address] [phone] [place] TSH/Free T4 If Indicated (03/30/2018 8:32 PM MONITORING SPECIALIST) TSH 2.49 0.35 - 4.94 uIU/mL [facility] Specimen Blood - Arm, Right Performing Organization Address [facility] Phone Number [address] [address] [phone] [place] PT/aPTT (03/30/2018 8:32 PM MONITORING SPECIALIST) Protime 17.3 (H) 11.7 - 14.7 seconds [facility] INR 1.4 <=5.9 [facility] PTT 31.8 22.5 - 36.0 seconds [facility] Specimen Blood - Arm, Right Narrative Performed At RECOMMENDED COUMADIN/WARFARIN INR THERAPY [facility] RANGES STANDARD DOSE: 2.0 - 3.0 Includes: PROPHYLAXIS for venous thrombosis, systemic embolization; TREATMENT for venous thrombosis and/or pulmonary embolus. HIGH RISK: Target INR is 2.5-3.5 for patients with mechanical heart valves. Performing Organization Address [facility] Phone Number [address] [address] [place] Carbohydrate antigen 19-9 (CA 19-9) (03/30/2018 8:32 PM MONITORING SPECIALIST) CA 19-9 [id number] (H) <34 U/mL [facility] Comment: This test was performed using the Siemens (Humanoid) Chemiluminescent method. Values obtained from different assay methods cannot be used interchangeably. CA19-9 levels, regardless of value, should not be interpreted as absolute evidence of the presence or absence of disease. Specimen Blood - Arm, Right Narrative Performed At Performing Lab [facility] EZ [facility] [address] [place] [address] Alexei Early MD, PhD, CHRISTIANO Performing Organization Address City/[facility] Hospital[facility] Phone Number [facility] [place] [address] INCORPORATED [address] [facility] CBC (Hemogram only) (03/30/2018 8:32 PM MONITORING SPECIALIST) WBC 10.4 3.5 - 10.5 K/L [facility] RBC 3.31 (L) 3.93 - 5.22 M/L [facility] Hemoglobin 9.7 (L) 11.2 - 15.7 GM/DL [facility] Hematocrit 30.3 (L) 34.1 - 44.9 % [facility] MCV 91.5 79.4 - 94.8 fL [facility] MCH 29.3 25.6 - 32.2 pg [facility] MCHC 32.0 (L) 32.2 - 35.5 GM/DL [facility] RDW 15.6 (H) 11.7 - 14.4 % [facility] Platelets 44 (L) 150 - 450 K/CU MM [facility] MPV 11.5 9.4 - 12.3 fL [facility] nRBC 0 0 - 0 /100 WBC [facility] Specimen Blood - Arm, Right Performing Organization Address City/State/Zipcode Phone Number [facility] [address] [place] [address] [phone] CENTER Carcinoembryonic Antigen (CEA) (03/30/2018 8:32 PM MONITORING SPECIALIST) CEA, SERUM 53.7 (H) 0.0 - 5.0 ng/mL [facility] Specimen Blood - Arm, Right Performing Organization Address City/[facility]/Zipcode Phone Number [facility] [address] [place] [address] [phone] [place] Ammonia (03/30/2018 8:32 PM MONITORING SPECIALIST) Ammonia 46 18 - 72 mol/L [facility] Specimen Blood - Arm, Right Performing Organization Address City/[facility]/Zipcode Phone Number [place] [phone] [place] [address] CENTER Comprehensive metabolic panel (03/30/2018 8:32 PM MONITORING SPECIALIST) Protein, Total 5.1 (L) 6.0 - 8.3 gm/dL [facility] Albumin 2.9 (L) 3.5 - 5.0 g/dL [facility] Alkaline Phosphatase 1,024 (H) 40 - 150 U/L [facility] Total Bilirubin 7.6 (H) 0.2 - 1.2 mg/dL [facility] Sodium 134 (L) 136 - 145 meq/L [facility] Potassium 3.5 3.5 - 5.1 meq/L [facility] Chloride 104 98 - 107 meq/L [facility] CO2 21 (L) 22 - 29 meq/L [facility] BUN 33 (H) 7 - 21 mg/dL [facility] Creatinine 1.19 0.57 - 1.25 mg/dL [facility] Glucose 191 (H) 70 - 105 mg/dL [facility] Calcium 8.1 (L) 8.4 - 10.2 mg/dL [facility] AST 194 (H) 5 - 34 U/L [facility] ALT 267 (H) 6 - 55 U/L [facility] EGFR 45Comment: ESTIMATED GFR mL/min/1.73 sq m [facility] IS NOT ACCURATE [facility] CREATININE CLEARANCE IN PREDICTING GLOMERULAR FILTRATION RATE. ESTIMATED GFR IS NOT APPLICABLE FOR DIALYSIS PATIENTS. 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 Impression: No acute findings in the chest Signed: Noble Montanez MD Report Verified Date/Time:03/30/2018 17:40:06 Reading Location: [facility] C0[facility] CT Body Reading Room Procedure Note Interface, External Ris In - 03/30/2018 5:42 PM MONITORING SPECIALIST FINAL REPORT Chest, one view History: Cough Comparison: none Findings: Clear lungs. Normal size heart. No pleural effusion or pneumothorax. 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 Impression: No acute findings in the chest Signed: Noble Montanez MD Report Verified Date/Time: 03/30/2018 17:40:06 Reading Location: [facility] [id number] CT Body Reading Room Performing Organization Address City/State/Zipcode Phone Number [facility] RIS ECG 12 lead (03/30/2018 4:28 PM MONITORING SPECIALIST) Narrative Performed At Ventricular Rate 94 BPM GE MUSE Atrial Rate 94 BPM P-R Interval 130 ms QRS Duration 78 ms Q-T Interval 388 ms QTC Calculation(Bazett) 485 ms P [place] 88 degrees R [place] 88 degrees T [place] 47 degrees Normal sinus rhythm ST abnormality, possible digitalis effect Abnormal ECG No previous ECGs available Confirmed by MD JOSEE, NANETTE ([id number]) on 03/31/2018 11:55:47 AM Procedure Note Interface, External Ris In - 03/31/2018 11:55 AM MONITORING SPECIALIST Ventricular Rate 94 BPM Atrial Rate 94 BPM P-R Interval 130 ms QRS Duration 78 ms Q-T Interval 388 ms QTC Calculation(Bazett) 485 ms P [place] 88 degrees R [place] 88 degrees T [place] 47 degrees Normal sinus rhythm ST abnormality, possible digitalis effect Abnormal ECG No previous ECGs available Confirmed by MD JOSEE, NANETTE ([id number]) on 03/31/2018 11:55:47 AM Performing Organization Address City/State/Zipcode Phone Number GE MUSE after 04/14/2017 Insurance Payer Benefit Plan / Group Subscriber ID Type Phone Address MEDICARE MEDICARE A B xxxxxxxxxx Medicare AETNA - [place]GD CARE AETNA INDEMNITY NON CONTR xxxxxxxxx Comm Advance Directives For more information, please contact:[address] [phone] Code Status Date Activated Date Inactivated Comments Full Code 03/30/2018 3:44 PM This code status was determined by: Patient
[2018-04-15] MEDS ORDERED: NA CHLORIDE 0.9% 1,000 ML ONE (12:37)
[2018-04-15 12:38] LABS: Absolute Lymphocytes (CBC) 2.3 K/uL (0.7-4.9); Absolute Neutrophil 11.9 K/uL (1.8-8.0); Basophils % 0.8 % (0-1.3); Eosinophils % 0.4 % (0-4.4); Hematocrit 33.6 % (36.0-45.0); Lymphocytes % 14.7 % (15.3-44.8); MPV 10.3 fL (7.6-11.3); Monocytes % 6.5 % (3.3-12.3); RBC Red Blood Cell Count 3.81 M/uL (3.86-4.86)
[2018-04-15 12:48] LABS: Protime INR 2.36
--- NOTE | 2018-04-15 13:02 | RAD REPORT ---
EXAM DESCRIPTION: RAD - Chest Single View - 04/15/2018 12:53 pm CLINICAL HISTORY: Cough, shortness of breath, leg swelling, recent pancreatic carcinoma diagnosis COMPARISON: November 2017 TECHNIQUE: AP portable chest image was obtained 1241 hours . FINDINGS: Bibasilar airspace opacification is present slightly worse on the right. There is addition al interstitial edema or infiltrate in the mid and lower lung arceo. No acute upper lung field findi ng. Vasculature within normal limits the heart size is normal. Small right pleural effusion is suspec zuly. No pneumothorax. No acute bony abnormality seen. No acute aortic findings suspected. IMPRESSION: Bilateral lower lung field interstitial and alveolar opacification. In the acute clinical setting, bilateral pneumonia would be suspected. With concurrent history of low er extremity edema, an atypical presentation of failure or volume overload would be possible.
[2018-04-15 13:52] LABS: Albumin 2.7 g/dL (3.4-5.0); Bilirubin Direct 5.6 mg/dL (0-0.2); Magnesium 2.3 mg/dL (1.8-2.4); Potassium 4.3 mmol/L (3.5-5.1); Protein, Total 5.9 g/dL (6.4-8.2); Troponin (Emerg Dept Use Only) 0.04 ng/mL (0.0-0.045)
[2018-04-15 13:53] LABS: Platelet Estimate DECR; Platelets, Giant FEW PRESENT
[2018-04-15 13:54] LABS: Anisocytosis 1+; Blood Morphology Comment NOTED (NOT SEEN)
[2018-04-15 14:02] LABS: Bilirubin Total 6.9 mg/dL (0.2-1.0)
--- NOTE | 2018-04-15 15:32 | RAD REPORT ---
EXAM DESCRIPTION: CT - Abdomen Pelvis W Contrast - 04/15/2018 3:13 pm CLINICAL HISTORY: Leg pain and swelling, abdominal pain, recent pancreatic cancer diagnosis, prior b reast cancer diagnosis COMPARISON: CT study March 30 TECHNIQUE: Biphasic, helical CT imaging of the abdomen and pelvis was performed following 100 ml non -ionic IV contrast. Oral contrast was given. All CT scans are performed using dose optimization technique as appropriate and may include automated exposure control or mA/KV adjustment according to patient size. FINDINGS: Moderate bilateral pleural effusions with lung base atelectasis. Minimal lung parenchymal opacification from edema or infiltrate. No pericardial thickening or effusion. Liver remains grossly abnormal with multiple variably sized low-density masses throughout the hepatic parenchyma. No clear change from March 30. Biliary stent is now in place. Gallbladder is contracte d. Pancreatic tail mass is unchanged over this short interval. No splenic abnormality. Symmetric renal function is seen with no hydronephrosis or suspicious renal mass. No pyelonephritis o r acute parenchymal process. No bladder abnormalities. No adrenal abnormalities. No gastric dilatation or wall thickening. No large or small bowel dilatation. Oral contrast has reach ed the distal rectum. Scattered diverticulosis is present. No diverticulitis or acute colon finding. Numerous surgical clips are seen along the floor and pelvic side [place]. Uterus is absent. No free air or pneumatosis. Trace amount of ascites is present including a small amount of fluid in t he ventral hernia midline upper abdomen. There is no bowel involvement of the hernia. No omental thic kening or bulky lymphadenopathy. Advanced bony degenerative changes are present. No clearly pathologic bone process. IMPRESSION: No bowel obstruction, free air or surgically emergent finding. Extensive hepatic metastatic disease matching March 30 imaging. Pancreatic tail mass has not change d over the short interval. Biliary stent is in place since prior imaging. Biliary tree remains prominent. No acute GI process identifiable. No acute finding.
[2018-04-15] MEDS ORDERED: Levofloxacin500mg IV 500 MG/100 ML BAG IV ONE (15:42)
--- NOTE | 2018-04-15 15:42 | EDPHYS ---
Physician Documentation [facility] Name: Linda Paniagua Age: 72 yrs Sex: Female : 1945 Arrival Date: 04/15/2018 Time: 11:30 Bed 8 Private MD: Emanuel Chapman ED Physician Marcos Chiang HPI: 04/15 13:35 This 72 yrs old Female presents to ER via Wheelchair with complaints of Feet denise Swelling. 13:35 The patient presents with decreased range of motion, pain, swelling. The complaints denise affect the right leg and left leg. Context: The problem was sustained at home. Onset: The symptoms/episode began/occurred 3 day(s) ago. Modifying factors: The symptoms are alleviated by nothing. the symptoms are aggravated by nothing. Associated signs and symptoms: The patient has no apparent associated signs or symptoms. The patient presents with distended. Treatment prior to arrival includes: elevation of the extremity. Historical: - Allergies: 11:40 PENICILLINS; aa5 - PMHx: 11:40 breast cancer; Dementia; Hyperlipidemia; Hypertension; uterine cancer; Pancreatic aa5 Cancer; - PSHx: 11:40 mastectomy- left sided lymph node removal; Hysterectomy; neck; aa5 - Immunization history:: Adult Immunizations up to date. - Ebola Screening: : No symptoms or risks identified at this time. - Social history:: Smoking status: Patient/guardian denies using tobacco, Patient/guardian denies using alcohol. - Family history:: not pertinent. ROS: 13:35 Constitutional: Negative for fever, chills, and weight loss, Eyes: Negative for injury, denise pain, redness, and discharge, ENT: Negative for injury, pain, and discharge, Neck: Negative for injury, pain, and swelling, Cardiovascular: Negative for chest pain, palpitations, and edema, Respiratory: Negative for shortness of breath, cough, wheezing, and pleuritic chest pain, Abdomen/GI: Negative for abdominal pain, nausea, vomiting, diarrhea, and constipation, Back: Negative for injury and pain, : Negative for injury, bleeding, discharge, and swelling, Neuro: Negative for headache, weakness, numbness, tingling, and seizure, Allergy/Immunology: Negative for hives, rash, and allergies, Endocrine: Negative for neck swelling, polydipsia, polyuria, polyphagia, and marked weight changes, Hematologic/Lymphatic: Negative for swollen nodes, abnormal bleeding, and unusual bruising. 13:35 MS/extremity: Positive for swelling, of the right leg and left leg. Exam: 13:35 Constitutional: This is a well developed, well nourished patient who is awake, alert, denise and in no acute distress. Head/Face: Normocephalic, atraumatic. Eyes: Pupils equal round and reactive to light, extra-ocular motions intact. Lids and lashes normal. Conjunctiva and sclera are non-icteric and not injected. Cornea within normal limits. Periorbital areas with no swelling, redness, or edema. ENT: Nares patent. No nasal discharge, no septal abnormalities noted. Tympanic membranes are normal and external auditory canals are clear. Oropharynx with no redness, swelling, or masses, exudates, or evidence of obstruction, uvula midline. Mucous membranes moist. Neck: Trachea midline, no thyromegaly or masses palpated, and no cervical lymphadenopathy. Supple, full range of motion without nuchal rigidity, or vertebral point tenderness. No Meningismus. Chest/axilla: Normal chest wall appearance and motion. Nontender with no deformity. No lesions are appreciated. Cardiovascular: Regular rate and rhythm with a normal S1 and S2. No gallops, murmurs, or rubs. Normal PMI, no JVD. No pulse deficits. Respiratory: Lungs have equal breath sounds bilaterally, clear to auscultation and percussion. No rales, rhonchi or wheezes noted. No increased work of breathing, no retractions or nasal flaring. Abdomen/GI: Soft, non-tender, with normal bowel sounds. No distension or tympany. No guarding or rebound. No evidence of tenderness throughout. Back: No spinal tenderness. No costovertebral tenderness. Full range of motion. Neuro: Awake and alert, GCS 15, oriented to person, place, time, and situation. Cranial nerves II-XII grossly intact. Motor strength 5/5 in all extremities. Sensory grossly intact. Cerebellar exam normal. Normal gait. Psych: Awake, alert, with orientation to person, place and time. Behavior, mood, and affect are within normal limits. 13:35 Musculoskeletal/extremity: ROM: intact in all extremities, full active range of motion, full passive range of motion, Circulation is intact in all extremities. Sensation intact. Compartment Syndrome exam of affected extremity: is normal. DVT Exam: no pain, no tenderness, negative Homans' sign noted on exam, no appreciated bluish discoloration, no erythema, no increased warmth, swelling. 13:35 Skin: Appearance: Color: jaundiced, pale. Vital Signs: 11:40 BP 140 / 91; Pulse 94; Resp 18 S; Temp 97.8(O); Pulse Ox 100% on R/A; aa5 13:54 BP 127 / 98; Pulse 89; Resp 18; Pulse Ox 100% on R/A; hj 15:55 BP 125 / 90; Pulse 85; Resp 18; Pulse Ox 100% on R/A; hj 17:28 BP 124 / 89; Pulse 86; Resp 18; Pulse Ox 100% on R/A; hj MDM: 12:00 Patient medically screened. [facility] 13:38 Data reviewed: vital signs, nurses notes, lab test result(s), EKG, radiologic studies, [facility] CT scan, plain films. 04/15 12:17 Order name: Basic Metabolic Panel; Complete Time: 15:23 [facility] 04/15 12:17 Order name: CBC with Diff; Complete Time: 15:23 [facility] 04/15 12:17 Order name: LFT's; Complete Time: 15:23 [facility] 04/15 12:17 Order name: Magnesium; Complete Time: 15:23 [facility] 04/15 12:17 Order name: NT PRO-BNP; Complete Time: 15:23 [facility] 04/15 12:17 Order name: PT-INR; Complete Time: 13:33 [facility] 04/15 12:17 Order name: Troponin (emerg Dept Use Only); Complete Time: 15:23 [facility] 04/15 12:17 Order name: XRAY Chest (1 view); Complete Time: 13:33 [facility] 04/15 12:17 Order name: Lipase; Complete Time: 15:23 [facility] 04/15 13:33 Order name: AMMONIA; Complete Time: 15:23 [facility] 04/15 13:34 Order name: CT Abd/Pelvis - W/Contrast; Complete Time: 15:34 [facility] 04/15 13:53 Order name: Manual Differential; Complete Time: 15:23 [facility] 04/15 12:17 Order name: EKG; Complete Time: 12:17 [facility] 04/15 12:17 Order name: Cardiac monitoring; Complete Time: 12:21 [facility] 04/15 12:17 Order name: EKG - Nurse/Tech; Complete Time: 12: [facility] 04/15 12:17 Order name: IV Saline Lock; Complete Time: 13: [facility] 04/15 12:17 Order name: Labs collected and sent; Complete Time: : [facility] 04/15 12:17 Order name: O2 Per Protocol; Complete Time: 12: [facility] 04/15 12:17 Order name: O2 Sat Monitoring; Complete Time: 12: [facility] Administered Medications: 12:45 Drug: NS 0.9% 1000 ml Route: IV; Rate: 75 ml/hr; Site: right antecubital; 15:58 Follow up: IV Status: Infusion continued 15:23 Drug: levofloxacin 500 mg Volume: 100 ml; Route: IVPB; Infused Over: 60 mins; Site: right upper arm; 15:58 Follow up: IV Status: Completed infusion hj Disposition: 04/15/18 16:27 Discharged to Home. Impression: Abdominal tenderness - pancreatic cancer, metastatic, Unspecified jaundice - obstructive, Anemia, unspecified, Dementia in other diseases classified elsewhere. - Condition is Serious. - Discharge Instructions: Abdominal Pain, Adult, Anemia, Nonspecific, Dementia, Edema, Jaundice, Adult, Abdominal Pain, Adult, Oika-vj-Ywjh, Hospice, Edema, Ohbq-ia-Gliq, Jaundice, Adult, Shla-pe-Rovi, Dementia, Wakq-bs-Jshp, Peripheral Edema. - Prescriptions for Levaquin 250 mg Oral Tablet - take 1 tablet by ORAL route once daily for 10 days; 7 tablet. - Medication Reconciliation Form, Thank You Letter, Antibiotic Education, Prescription Opioid Use form. - Follow up: Emanuel Chapman MD; When: 2 - 3 days; Reason: Recheck today's complaints, Continuance of care, Re-evaluation by your physician. Follow up: Susana Hoffmann MD; When: 2 - 3 days; Reason: Recheck today's complaints, Re-evaluation by your physician. Follow up: Rachele Parekh MD; When: 2 - 3 days; Reason: Recheck today's complaints, Continuance of care, Re-evaluation by your physician. - Problem is new. - Symptoms have improved. Signatures: Dispatcher [employer] EDMarcos Hilton MD MD cha Calderon, Audri RN RN aa5 Khanh Kim RN RN hj Corrections: (The following items were deleted from the chart) 16:24 15:40 Hospitalization Ordered by Susana Hoffmann MD for Inpatient Admission. Preliminary [facility] diagnosis is Edema, unspecified; Abdominal tenderness - metastatic pancreatic cancer, extensive live metasisis; Anemia, unspecified; Unspecified jaundice - obstructive; Dementia in other diseases classified elsewhere. Bed requested for Telemetry/MedSurg (Inpatient). Status is Inpatient Admission. Condition is Serious. Problem is an ongoing problem. Symptoms are unchanged. UTI on Admission? No. denise 16:31 16:27 04/15/2018 16:27 Discharged to Home. Impression: Abdominal tenderness - denise pancreatic cancer, metastatic; Unspecified jaundice - obstructive; Anemia, unspecified; Dementia in other diseases classified elsewhere. Condition is Serious. Forms are Medication Reconciliation Form, Thank You Letter, Antibiotic Education, Prescription Opioid Use. Follow up: Emanuel Chapman; When: 2 - 3 days; Reason: Recheck today's complaints, Continuance of care, Re-evaluation by your physician. Problem is new. Symptoms have improved. denise 17:29 16:31 04/15/2018 16:27 Discharged to Home. Impression: Abdominal tenderness - hj pancreatic cancer, metastatic; Unspecified jaundice - obstructive; Anemia, unspecified; Dementia in other diseases classified elsewhere. Condition is Serious. Discharge Instructions: Abdominal Pain, Adult, Anemia, Nonspecific, Dementia, Edema, Jaundice, Adult, Abdominal Pain, Adult, Gfxt-bo-Vesf, Edema, Habe-iy-Khby, Jaundice, Adult, Pttt-tm-Eglb, Dementia, Ylzi-tt-Uzie, Peripheral Edema, Hospice. Prescriptions for Levaquin 250 mg Oral Tablet - take 1 tablet by ORAL route once daily for 10 days; 7 tablet. and Forms are Medication Reconciliation Form, Thank You Letter, Antibiotic Education, Prescription Opioid Use. Follow up: Emanuel Chapman; When: 2 - 3 days; Reason: Recheck today's complaints, Continuance of care, Re-evaluation by your physician. Follow up: Susana Hoffmann; When: 2 - 3 days; Reason: Recheck today's complaints, Re-evaluation by your physician. Follow up: Rachele Alfaro; When: 2 - 3 days; Reason: Recheck today's complaints, Continuance of care, Re-evaluation by your physician. Problem is new. Symptoms have improved. denise
--- NOTE | 2018-04-15 15:42 | ER ---
Nurse's Notes [facility] Name: Linda Paniagua Age: 72 yrs Sex: Female : 1945 Arrival Date: 04/15/2018 Time: 11:30 Bed 8 Private MD: Emanuel Chapman Diagnosis: Abdominal tenderness-pancreatic cancer, metastatic;Unspecified jaundice-obstructive;Anemia, unspecified;Dementia in other diseases classified elsewhere Presentation: 04/15 11:40 Presenting complaint: states: "she was diagnosed with pancreatic cancer about 2 aa5 weeks ago but she's been more agitated and her legs are swollen". Pt's skin appears yellow and pale, pt's states "her skin color is actually getting better". 11:40 Transition of care: patient was not received from another setting of care. Onset of aa5 symptoms was March 2018. Care prior to arrival: None. 11:40 Method Of Arrival: Wheelchair aa5 11:40 Acuity: JOHANNA 3 aa5 11:45 Risk Assessment: Do you want to hurt yourself or someone else? Patient reports no hj desire to harm self or others. Initial Sepsis Screen: Does the patient meet any 2 criteria? No. Patient's initial sepsis screen is negative. Does the patient have a suspected source of infection? No. Patient's initial sepsis screen is negative. Triage Assessment: 11:45 General: Appears in no apparent distress. uncomfortable, Behavior is calm, cooperative, hj appropriate for age. Pain: Complains of pain in left leg. EENT: No signs and/or symptoms were reported regarding the EENT system. Neuro: Level of Consciousness is awake, alert, obeys commands, Oriented to person, place, time, situation, Appropriate for age. Cardiovascular: Capillary refill < 3 seconds Patient's skin is warm and dry. Respiratory: Airway is patent Respiratory effort is even, unlabored, Respiratory pattern is regular, symmetrical. GI: No signs and/or symptoms were reported involving the gastrointestinal system. : No signs and/or symptoms were reported regarding the genitourinary system. Derm: No signs and/or symptoms reported regarding the dermatologic system. Musculoskeletal: No signs and/or symptoms reported regarding the musculoskeletal system. Historical: - Allergies: 11:40 PENICILLINS; aa5 - PMHx: 11:40 breast cancer; Dementia; Hyperlipidemia; Hypertension; uterine cancer; Pancreatic aa5 Cancer; - PSHx: 11:40 mastectomy- left sided lymph node removal; Hysterectomy; neck; aa5 - Immunization history:: Adult Immunizations up to date. - Ebola Screening: : No symptoms or risks identified at this time. - Social history:: Smoking status: Patient/guardian denies using tobacco, Patient/guardian denies using alcohol. - Family history:: not pertinent. Screenin:45 Abuse screen: Denies threats or abuse. Denies injuries from another. Nutritional hj screening: No deficits noted. Tuberculosis screening: No symptoms or risk factors identified. Fall Risk None identified. Assessment: 11:45 General: Appears in no apparent distress. uncomfortable, Behavior is calm, cooperative, hj appropriate for age. Pain: Complains of pain in right leg and left leg. Neuro: Level of Consciousness is awake, alert, obeys commands, Oriented to person, place, time, situation, Appropriate for age. Cardiovascular: Capillary refill < 3 seconds Patient's skin is warm and dry. Respiratory: Airway is patent Respiratory effort is even, unlabored, Respiratory pattern is regular, symmetrical. GI: No signs and/or symptoms were reported involving the gastrointestinal system. : No signs and/or symptoms were reported regarding the genitourinary system. EENT: No signs and/or symptoms were reported regarding the EENT system. Derm: No signs and/or symptoms reported regarding the dermatologic system. 12:44 Reassessment: Patient and/or family updated on plan of care and expected duration. Pain hj level reassessed. Patient is alert, oriented x 3, equal unlabored respirations, skin warm/dry/pink. family in room;. 13:53 Reassessment: finished drinking contrast; technical artist informed;. hj 14:06 Reassessment: lab alert- total bilirubin- 6.9; MD aware;. hj 15:55 Reassessment: Patient and/or family updated on plan of care and expected duration. Pain hj level reassessed. Patient is alert, oriented x 3, equal unlabored respirations, skin warm/dry/pink. awaiting room asignment;. 16:17 Reassessment: Patient and/or family updated on plan of care and expected duration. Pain hj level reassessed. Patient is alert, oriented x 3, equal unlabored respirations, skin warm/dry/pink. per Dr. Hoffmann, [facility] rep Magdalena- [phone] to visit pt and enrol her on hospice care and pt will be D/C'd;. 17:11 Reassessment: Patient and/or family updated on plan of care and expected duration. Pain hj level reassessed. Patient is alert, oriented x 3, equal unlabored respirations, skin warm/dry/pink. Magdalena from [facility] in room with pt and family;. Vital Signs: 11:40 BP 140 / 91; Pulse 94; Resp 18 S; Temp 97.8(O); Pulse Ox 100% on R/A; aa5 13:54 BP 127 / 98; Pulse 89; Resp 18; Pulse Ox 100% on R/A; hj 15:55 BP 125 / 90; Pulse 85; Resp 18; Pulse Ox 100% on R/A; hj 17:28 BP 124 / 89; Pulse 86; Resp 18; Pulse Ox 100% on R/A; hj ED Course: 11:30 Patient arrived in ED. mr 11:31 Emanuel Chapman MD is Private Physician. mr 11:40 Arm band placed on Patient placed in an exam room, on a stretcher. aa5 11:42 Emanuel Wyatt, RN is Primary Nurse. bp 11:44 Triage completed. aa5 11:45 Khanh Kim, EVGENY is Primary Nurse. hj 11:45 Patient has correct armband on for positive identification. Placed in gown. Bed in low hj position. Call light in reach. Side rails up X 1. Adult w/ patient. 12:00 Marcos Chiang MD is Attending Physician. denise 12:29 EKG done, by household appliances service technician. reviewed by Marcos Chiang MD. dt2 12:32 Missed attempt(s): 22 gauge in left antecubital area. jb1 12:33 Initial lab(s) drawn, by me, sent to lab. jb1 12:50 X-ray completed. Portable x-ray completed in exam room. Patient tolerated procedure sw well. 12:52 XRAY Chest (1 view) In Process Unspecified. EDMS 13:00 Inserted saline lock: 22 gauge in right antecubital area, using aseptic technique. iw 13:45 AMMONIA Sent. hj 13:52 Notified ED physician of a critical lab result(s). PLT=32. iw 15:[address] via stretcher. vr 15:13 CT Abd/Pelvis - W/Contrast In Process Unspecified. EDMS 15:36 Susana Hoffmann MD is Hospitalizing Provider. denise 16:24 Emanuel Chapman MD is Referral Physician. denise 16:30 Susana Hoffmann MD is Referral Physician. denise 16:30 Rachele Parekh MD is Referral Physician. denise 17:28 No provider procedures requiring assistance completed. IV discontinued, intact, hj bleeding controlled, No redness/swelling at site. Pressure dressing applied. Administered Medications: 12:45 Drug: NS 0.9% 1000 ml Route: IV; Rate: 75 ml/hr; Site: right antecubital; hj 15:58 Follow up: IV Status: Infusion continued hj 15:23 Drug: levofloxacin 500 mg Volume: 100 ml; Route: IVPB; Infused Over: 60 mins; Site: hj right upper arm; 15:58 Follow up: IV Status: Completed infusion hj Outcome: 15:40 Decision to Hospitalize by Provider. denise 16:27 Discharge ordered by . denise 17:28 Discharged to home via wheelchair, with family. hj 17:28 Condition: stable 17:28 Discharge instructions given to patient, family, Instructed on discharge instructions, follow up and referral plans. medication usage, Demonstrated understanding of instructions, follow-up care, medications. 17:29 Patient left the ED. hj Signatures: Dispatcher [employer] EDMS Carlos Story jb1 Marcos Chiang MD MD cha Rivera, Mary mr Gina Spears, RN EVGENY Rita Caba RN RN Patricia Caldera Shannon sw Joaquin, Henry, RN RN Emanuel Wyatt, RN Sharon Lafleur dt2 Corrections: (The following items were deleted from the chart) 16:19 16:17 Reassessment: Patient and/or family updated on plan of care and expected hj duration. Pain level reassessed. Patient is alert, oriented x 3, equal unlabored respirations, skin warm/dry/pink. per Dr. Hoffmann, [facility] Nichols to visit pt and enrol her on hospice care and pt will be D/C'd; hj
--- NOTE | 2018-04-15 18:15 | P.CNS ---
Date of Consult: 04/15/18 Reason for Consult: Admission to the hospital Primary Care Provider: Dr. 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 Patient was found to have obstructive jaundice secondary to pancreatic cancer after needle biopsy was done and a stent was placed in the common bile duct. Biopsy results were positive for pancreatic adenocarcinoma most likely stage IV. Patient then was discharged home and was asked to follow up with heme oncology here locally in town versus [facility]. Patient was doing well overall however started to continues declining while at home in terms of weakness. Patient however continues to ambulate at the house without a rolling walker does have adequate oral intake and has no other complaints to offer. Daughter at bedside denies having any fever chills nausea vomiting or any other associated symptoms. Daughter called his primary care provider and explained to him regarding all the events that took place at [facility] and was advised to come to the ER to get a further evaluated. Allergies No Known Allergies Allergy (Verified 01/18/16 10:06) Home Medications: Aspirin [Aspirin EC 81 MG] 81 mg PO DAILY 01/18/16 Losartan/Hydrochlorothiazide [Losartan-Hctz 50-12.5 mg Tab] 1 each PO DAILY WITH BREAKFAST 01/18/16 Metoprolol Succinate [Toprol Xl*] 50 mg PO DAILY WITH BREAKFAST 01/18/16 Risedronate Sodium [Actonel] 150 mg PO ONCE 01/18/16 Simvastatin [Zocor*] 20 mg PO BEDTIME 01/18/16 Rivaroxaban [Xarelto] 20 mg PO DAILY #45 tablet 11/21/17 - Past Medical/Surgical History Diabetic: No -: Hypertension -: History of breast cancer -: History of uterine cancer -: Dementia -: Mastectomy -: Hysterectomy -: Tonsillectomy - Social History Alcohol use: No CD- Drugs: No Caffeine use: No Review of Systems 10-point ROS is otherwise unremarkable Physical Examination Temp Pulse Resp BP Pulse Ox 97.8 F 86 18 124/89 04/15/18 11:40 04/15/18 17:28 04/15/18 17:28 04/15/18 17:28 General: Alert, In no apparent distress, Demented HEENT: Atraumatic, PERRLA, Mucous membr. moist/pink, EOMI, Scleral icterus Neck: Supple, 2+ carotid pulse no bruit, No LAD, Without JVD or thyroid abnormality Respiratory: Clear to auscultation bilaterally, Normal air movement Cardiovascular: Regular rate/rhythm, Normal S1 S2 Gastrointestinal: Normal bowel sounds, No tenderness Musculoskeletal: No tenderness Integumentary: No rashes Neurological: Normal gait, Normal speech, Normal tone, Normal affect Lymphatics: No axilla or inguinal lymphadenopathy Laboratory Data (last 24 hrs) 04/15/18 12:30: PT 26.9 H, INR 2.36 04/15/18 12:30: WBC 15.4 H, Hgb 11.0 L, Hct 33.6 L, Plt Count 32 L* 04/15/18 12:30: Sodium 133 L, Potassium 4.3, BUN 26 H, Creatinine 1.29, Glucose 98, Magnesium 2.3, Total Bilirubin 6.9 H*, AST 186 H, ALT 158 H, Alkaline Phosphatase 1505 H, Lipase 63 L - Problems (1) Stage IV adenocarcinoma of pancreas Status: Acute (2) History of heart valve replacement Status: Chronic (3) Hypertension Onset Date: 11/21/17 Status: Chronic Qualifiers: Hypertension type: essential hypertension Qualified Code(s): I10 - Essential (primary) hypertension Conclusions/Impression: In the the ER patient was found to have T bilirubin of 6.9 which was down from 9.8 that was found at [facility]. General medicine was consulted to admit the patient to the hospital for generalized weakness. Patient was seen and evaluated in the ER by me along with complex case manager. Detailed discussion regarding treatment care plan of care was discussed with the family who expressed the wish that they would actually prefer to go with more of a palliative right given the extensive past medical history and now with a new diagnosis of stage IV pancreatic cancer. Patient's who is the medical power patent prosecution attorney made a decision that patient should be enrolled in hospice care with the [facility] hospice and thus hospice company was notified. Patient was enrolled from the ER and was thus discharged from the ER as no acute needs were identified to admit the patient to the hospital. Family member at bedside were in agreement with the plan and patient was discharged home under stable condition.
--- NOTE | 2018-04-15 18:38 | EKG ---
Test Date: 2018-04-15 Test Time: 12:24:55 Business Applications Manager: TOBY MEASUREMENT RESULTS: Intervals: Rate: 87 NV: 130 QRSD: 80 QT: 392 QTc: 471 [place]: P: 57 NV: 130 QRS: 51 T: 56 INTERPRETIVE STATEMENTS: Normal sinus rhythm Possible Left atrial enlargement Borderline ECG Compared to ECG 03/30/2018 08:42:58 No significant changes Electronically Signed On 04-15-18 18:36:51 RUBBER PRESS TENDER by Donis Meredith
== END 2018-04-15 17:29 | disposition home or self-care (01) ==
LOC: ER 11:27
DX: K83.1 Obstruction of bile duct (principal); D64.9 Anemia, unspecified; F03.90 Unspecified dementia, unspecified severity, without behavioral disturbance, psychotic disturbance, mood disturbance, and anxiety; I10 Essential (primary) hypertension; Z88.0 Allergy status to penicillin; Z85.3 Personal history of malignant neoplasm of breast; Z85.07 Personal history of malignant neoplasm of pancreas; Z85.42 Personal history of malignant neoplasm of other parts of uterus; Z90.12 Acquired absence of left breast and nipple
CPT/HCPCS: 36415; 71045; 74177; 80048; 80076; 82140; 83690; 83735; 83880; 84484; 85025; 85610; 93005; J7030; Q9967; 96361; 96365; 99284